=== PATIENT | male | born 1955 | race Two or more races ===

== ENCOUNTER → 2017-01-18 | Outpatient (CLI) | payer MEDICAID, OTHER | END | disposition home or self-care (01) | LOC: Rad HDHVI 15:06 | PROVIDERS: ATTEND Internal Medicine Cardiovascular Disease | DX: I25.10 Atherosclerotic heart disease of native coronary artery without angina pectoris (principal) | CPT/HCPCS: 93306 ==

== ENCOUNTER → 2019-05-22 | Outpatient (CLI) | payer OTHER ==
[2019-05-22 13:58] LABS: Hematocrit 43.1 % (41.0-53.0); Hemoglobin 14.7 g/dL (13.5-17.5); Lymphocytes # (auto) 1.3 uL; Mean Corpuscular Hemoglobin 35.4 pg (28.0-32.0); Mean Corpuscular Hgb Conc. 34.2 g/dL (32.0-36.0); Platelet Count (auto) 204 10^3/uL (140-450); Red Blood Cells 4.17 10^6/uL (4.5-5.90)
[2019-05-22 14:00] LABS: Basophils # (auto) 0.1 uL; Basophils % (auto) 1.1 % (0.0-2.0); Eosinophils # (auto) 0.2 uL; Eosinophils % (auto) 2.5 % (0.0-7.0); Lymphocytes % (auto) 20.3 % (10.0-50.0); Mean Corpuscular Volume 103.3 fL (80.0-100.0); Monocytes # (auto) 0.6 uL; Monocytes % (auto) 9.7 % (0.0-12.0); Neutrophils # (auto) 4.3 uL; Neutrophils % (auto) 66.4 % (37.0-80.0); Red Cell Distribution Width 14.2 % (11.8-14.3); White Blood Cell 6.5 10^3/uL (4.4-10.8)
[2019-05-22 14:33] LABS: Albumin 3.7 g/dL (3.4-5.0); BUN/Creatinine Ratio 8.4; Calcium 8.3 mg/dL (8.5-10.1)
[2019-05-22 14:37] LABS: Bilirubin, Total 0.5 mg/dL (0.2-1.0); Total Protein 7.4 g/dL (6.4-8.2)
== END | disposition home or self-care (01) ==
LOC: LAB 13:39
PROVIDERS: ATTEND Internal Medicine
DX: Z12.11 Encounter for screening for malignant neoplasm of colon (principal); E11.9 Type 2 diabetes mellitus without complications; I25.10 Atherosclerotic heart disease of native coronary artery without angina pectoris; E78.5 Hyperlipidemia, unspecified
CPT/HCPCS: 36415; 80053; 80061; 82043; 82274; 82306; 83036; 84153; 84443; 85025

== ENCOUNTER → 2019-07-10 | Outpatient (CLI) | payer OTHER ==
[~2019-07-10] VITALS: Ht 172.7 cm; Wt 81.6 kg
== END | disposition home or self-care (01) ==
LOC: Rad HDHVI 09:36
PROVIDERS: ATTEND Internal Medicine
DX: I25.10 Atherosclerotic heart disease of native coronary artery without angina pectoris (principal); I42.9 Cardiomyopathy, unspecified; I07.1 Rheumatic tricuspid insufficiency; I11.9 Hypertensive heart disease without heart failure
CPT/HCPCS: 78452; 93017; 93306; 96374; A9500

== ENCOUNTER → 2022-06-17 | Outpatient (CLI) | payer MEDICARE ==
[2022-06-17 11:12] LABS: Basophils # (auto) 0.1 10 ^3/uL (0-0.2); Eosinophils # (auto) 0.7 10 ^3/uL (0-0.8); Hemoglobin 14.6 g/dL (13.5-17.5); Lymphocytes # (auto) 1.2 10 ^3/uL (0.4-5.4); Monocytes # (auto) 0.7 10 ^3/uL (0-1.3); Neutrophils # (auto) 4.9 10 ^3/uL (1.6-8.6); Neutrophils % (auto) 64.6 % (37.0-80.0)
[2022-06-17 11:16] LABS: Basophils % (auto) 1.3 % (0.0-2.0); Eosinophils % (auto) 9.4 % (0.0-7.0); Hematocrit 44.1 % (41.0-53.0); Lymphocytes % (auto) 15.5 % (10.0-50.0); Mean Corpuscular Hemoglobin 35.5 pg (28.0-32.0); Mean Corpuscular Volume 107.5 fL (80.0-100.0); Monocytes % (auto) 9.2 % (0.0-12.0); Red Cell Distribution Width 13.9 % (11.8-14.3); White Blood Cell 7.6 10^3/uL (4.4-10.8)
[2022-06-17 11:37] LABS: Albumin 3.9 g/dL (3.4-5.0); Calcium 9.1 mg/dL (8.5-10.1)
[2022-06-17 11:44] LABS: BUN/Creatinine Ratio 12.5; Bilirubin, Total 1.2 mg/dL (0.2-1.0); Total Protein 7.9 g/dL (6.4-8.2)
[2022-06-17 11:47] LABS: Ferritin 25.8 ng/mL (10-322); Free T4 (Free Thyroxine) 0.95 ng/dL (0.89-1.76); Prostate Specific Antigen 3.49 ng/mL (0.0-4.0)
[2022-06-17 11:48] LABS: Folate (Folic Acid) > 24.00 ng/mL (5.38-24)
[2022-06-17 11:50] LABS: Potassium 5.7 mmol/L (3.5-5.1)
== END | disposition home or self-care (01) ==
LOC: LAB 10:35
PROVIDERS: ATTEND Internal Medicine
DX: Z12.5 Encounter for screening for malignant neoplasm of prostate (principal); Z12.11 Encounter for screening for malignant neoplasm of colon; I10 Essential (primary) hypertension; E78.5 Hyperlipidemia, unspecified; E11.21 Type 2 diabetes mellitus with diabetic nephropathy; E55.9 Vitamin D deficiency, unspecified
CPT/HCPCS: 36415; 80053; 80061; 82043; 82306; 82607; 82728; 82746; 83036; 84153; 84439; 84443; 85025

== ENCOUNTER → 2022-06-27 | Outpatient (CLI) | payer MEDICARE | END | disposition home or self-care (01) | LOC: LAB 14:51 | PROVIDERS: ATTEND Internal Medicine | DX: I25.10 Atherosclerotic heart disease of native coronary artery without angina pectoris (principal); I10 Essential (primary) hypertension; E78.5 Hyperlipidemia, unspecified; Z12.11 Encounter for screening for malignant neoplasm of colon; Z12.5 Encounter for screening for malignant neoplasm of prostate | CPT/HCPCS: 82274 ==

== ENCOUNTER → 2022-07-26 | Outpatient (CLI) | payer OTHER | END | disposition home or self-care (01) | LOC: LAB 11:58 | PROVIDERS: ATTEND Internal Medicine Pulmonary Disease | DX: Z01.812 Encounter for preprocedural laboratory examination (principal); Z20.822 Contact with and (suspected) exposure to COVID-19 | CPT/HCPCS: 36415; 87426 ==

== ENCOUNTER → 2022-07-27 | Outpatient (CLI) | payer MEDICARE, OTHER ==
[~2022-07-27] MED LIST: ALBUTEROL SULF 2.5 MG/0.5ML(0.5%) NEB SOLN ONE
== END | disposition home or self-care (01) ==
LOC: RT 07:36
PROVIDERS: ATTEND Internal Medicine Pulmonary Disease
DX: J44.9 Chronic obstructive pulmonary disease, unspecified (principal); R05.9 Cough, unspecified; R06.00 Dyspnea, unspecified; Z87.891 Personal history of nicotine dependence
CPT/HCPCS: 94060; 94727; 94729

== ENCOUNTER → 2022-08-12 | Outpatient (CLI) | payer OTHER ==
[~2022-08-12] VITALS: Ht 175.3 cm; Wt 79.4 kg
[~2022-08-12] MED LIST changes: +ADENOSINE 67 MG in GIVE UN-DILUTED 0 ML IV ONE; +ADENOSINE 90 MG/30 ML INJ IV ONE; -ALBUTEROL SULF 2.5 MG/0.5ML(0.5%) NEB SOLN ONE
== END | disposition home or self-care (01) ==
LOC: Rad HDHVI 09:06
PROVIDERS: ATTEND Internal Medicine
DX: I25.10 Atherosclerotic heart disease of native coronary artery without angina pectoris (principal); I10 Essential (primary) hypertension; I25.2 Old myocardial infarction; J44.9 Chronic obstructive pulmonary disease, unspecified; E78.00 Pure hypercholesterolemia, unspecified; E11.9 Type 2 diabetes mellitus without complications; Z82.49 Family history of ischemic heart disease and other diseases of the circulatory system
CPT/HCPCS: 78452; 93005; 96374; 96375; A9500; J0153

== ENCOUNTER → 2022-08-15 | Outpatient (CLI) | payer OTHER | END | disposition home or self-care (01) | LOC: Rad HDHVI 08:06 | PROVIDERS: ATTEND Internal Medicine | DX: I08.1 Rheumatic disorders of both mitral and tricuspid valves (principal); R00.2 Palpitations; R07.9 Chest pain, unspecified; R07.89 Other chest pain | CPT/HCPCS: 93306 ==

== ENCOUNTER → 2022-08-17 | Outpatient (CLI) | payer OTHER ==
[2022-08-17 12:29] LABS: Basophils # (auto) 0.1 10 ^3/uL (0-0.2); Eosinophils # (auto) 0.5 10 ^3/uL (0-0.8); Lymphocytes # (auto) 1.5 10 ^3/uL (0.4-5.4); Monocytes # (auto) 0.8 10 ^3/uL (0-1.3)
[2022-08-17 12:31] LABS: Eosinophils % (auto) 7.4 % (0.0-7.0); Hematocrit 41.7 % (41.0-53.0); Hemoglobin 13.5 g/dL (13.5-17.5); Lymphocytes % (auto) 20.8 % (10.0-50.0); Mean Corpuscular Hgb Conc. 32.4 g/dL (32.0-36.0); Monocytes % (auto) 11.1 % (0.0-12.0); Neutrophils # (auto) 4.3 10 ^3/uL (1.6-8.6); Neutrophils % (auto) 59.7 % (37.0-80.0); Red Blood Cells 3.97 10^6/uL (4.5-5.90); Red Cell Distribution Width 13.9 % (11.8-14.3); White Blood Cell 7.2 10^3/uL (4.4-10.8)
[2022-08-17 12:45] LABS: Albumin 3.7 g/dL (3.4-5.0); BUN/Creatinine Ratio 14.6; Calcium 9.8 mg/dL (8.5-10.1); Potassium 4.7 mmol/L (3.5-5.1)
[2022-08-17 12:49] LABS: Bilirubin, Total 0.6 mg/dL (0.2-1.0); Total Protein 7.2 g/dL (6.4-8.2)
[2022-08-17 13:01] LABS: Free T4 (Free Thyroxine) 0.85 ng/dL (0.89-1.76); Prostate Specific Antigen 3.48 ng/mL (0.0-4.0)
[2022-08-17 14:05] LABS: Urine Specific Gravity 1.009 (1.001-1.035)
[2022-08-17 14:06] LABS: Urine Blood Negative /uL (Negative)
== END | disposition home or self-care (01) ==
LOC: LAB 08:13
PROVIDERS: ATTEND Internal Medicine
DX: E11.65 Type 2 diabetes mellitus with hyperglycemia (principal); E55.9 Vitamin D deficiency, unspecified
CPT/HCPCS: 36415; 80053; 80061; 81003; 82306; 82607; 83036; 84153; 84403; 84439; 84443; 85025

== ENCOUNTER → 2022-09-30 | Day surgery (SDC) | payer OTHER ==
[2022-09-28 08:44] LABS: Basophils # (auto) 0.1 10 ^3/uL (0-0.2); Lymphocytes # (auto) 1.6 10 ^3/uL (0.4-5.4); Monocytes # (auto) 0.8 10 ^3/uL (0-1.3); Red Cell Distribution Width 14.9 % (11.8-14.3); White Blood Cell 7.6 10^3/uL (4.4-10.8)
[2022-09-28 08:45] LABS: Basophils % (auto) 0.8 % (0.0-2.0); Eosinophils # (auto) 0.4 10 ^3/uL (0-0.8); Eosinophils % (auto) 4.9 % (0.0-7.0); Hematocrit 43.6 % (41.0-53.0); Hemoglobin 13.9 g/dL (13.5-17.5); Mean Corpuscular Hemoglobin 32.5 pg (28.0-32.0); Mean Corpuscular Hgb Conc. 31.9 g/dL (32.0-36.0); Monocytes % (auto) 10.8 % (0.0-12.0); Neutrophils # (auto) 4.7 10 ^3/uL (1.6-8.6); Neutrophils % (auto) 62.5 % (37.0-80.0); Red Blood Cells 4.27 10^6/uL (4.5-5.90)
[2022-09-28 08:59] LABS: INR 1.12 (0.9-1.15); Partial Thromboplastin Time 29.9 sec (24.6-33.4)
[2022-09-28 09:11] LABS: Albumin 3.9 g/dL (3.4-5.0); BUN/Creatinine Ratio 16.1; Calcium 8.7 mg/dL (8.5-10.1); Potassium 4.9 mmol/L (3.5-5.1)
[2022-09-28 09:14] LABS: Bilirubin, Total 0.6 mg/dL (0.2-1.0); Total Protein 7.5 g/dL (6.4-8.2)
[~2022-09-30] VITALS: Ht 172.7 cm; Wt 80.7 kg
[~2022-09-30] MED LIST changes: -ADENOSINE 67 MG in GIVE UN-DILUTED 0 ML IV ONE; -ADENOSINE 90 MG/30 ML INJ IV ONE; +ASPI1TAB20 PO; +CARV6.25 PO; +FLUT1AER3 IN; +LIDOCAINE VISCOUS 2% 15ML UD ONE; +LISI20TA28 PO; +METF-490 PO
[2022-09-30] MEDS: fentaNYL CITRATE 100 MCG/2 ML VL ONE ×2 (15:27→15:31)
[2022-09-30] MEDS: MIDAZOLAM HCL 2MG/2ML 2ml VIAL (1mg/ml) ONE ×2 (15:27→15:31)
[2022-09-30] MEDS: diphenhdrAMINE HCL 50 MG/1 ML VL ONE ×2 (15:28→15:29)
[2022-09-30 16:25] VITALS: BP 121/74
== END | disposition home or self-care (01) ==
LOC: GI 12:42
PROVIDERS: ATTEND Internal Medicine Gastroenterology
DX: R10.9 Unspecified abdominal pain (principal); K29.90 Gastroduodenitis, unspecified, without bleeding; K44.9 Diaphragmatic hernia without obstruction or gangrene; K25.9 Gastric ulcer, unspecified as acute or chronic, without hemorrhage or perforation; E11.9 Type 2 diabetes mellitus without complications; J44.9 Chronic obstructive pulmonary disease, unspecified; Z79.82 Long term (current) use of aspirin; Z79.84 Long term (current) use of oral hypoglycemic drugs; Z91.030 Bee allergy status; Z87.891 Personal history of nicotine dependence; Z98.890 Other specified postprocedural states; Z20.822 Contact with and (suspected) exposure to COVID-19
CPT/HCPCS: 36415; 43239; 80053; 82962; 85025; 85610; 85730; J1200; J2250; J3010; J7030; U0003

== ENCOUNTER 2022-12-14 14:46 | Emergency (ER) | payer MEDICARE, OTHER ==
[~2022-12-14] VITALS: Ht 172.7 cm; Wt 78.0 kg
[~2022-12-14 14:46] MED LIST changes: -LIDOCAINE VISCOUS 2% 15ML UD ONE
[2022-12-14 16:00] LABS: Basophils # (auto) 0.1 10 ^3/uL (0-0.2); Basophils % (auto) 0.8 % (0.0-2.0); Eosinophils # (auto) 0.3 10 ^3/uL (0-0.8); Eosinophils % (auto) 3.6 % (0.0-7.0); Hematocrit 40.8 % (41.0-53.0); Hemoglobin 13.1 g/dL (13.5-17.5); Lymphocytes # (auto) 1.3 10 ^3/uL (0.4-5.4); Lymphocytes % (auto) 17.8 % (10.0-50.0); Mean Corpuscular Hemoglobin 31.2 pg (28.0-32.0); Mean Corpuscular Volume 97.6 fL (80.0-100.0); Monocytes # (auto) 0.7 10 ^3/uL (0-1.3); Monocytes % (auto) 9.8 % (0.0-12.0); Nucleated Red Blood Cells % 0.1 %; Red Blood Cells 4.19 10^6/uL (4.5-5.90); Red Cell Distribution Width 16.8 % (11.8-14.3); White Blood Cell 7.4 10^3/uL (4.4-10.8)
[2022-12-14 16:19] LABS: Albumin 3.6 g/dL (3.4-5.0); Calcium 9.2 mg/dL (8.5-10.1); Magnesium 2.1 mg/dL (1.6-2.6); Potassium 4.4 mmol/L (3.5-5.1)
[2022-12-14 16:22] LABS: Bilirubin, Total 0.4 mg/dL (0.2-1.0); Total Protein 7.4 g/dL (6.4-8.2)
[2022-12-14 16:28] LABS: INR 1.08 (0.9-1.15); Partial Thromboplastin Time 30.5 sec (24.6-33.4)
[2022-12-14] MEDS ORDERED: SODIUM CHLORIDE 0.9% 1,000 ML IV ONE (17:15)
[2022-12-14 18:34] LABS: Urine Bacteria NONE SEEN /hpf (None Seen); Urine Blood Negative /uL (Negative); Urine Specific Gravity 1.003 (1.001-1.035); Urine WBC <1 /hpf (0 - 3)
[2022-12-14 18:39] VITALS: BP 118/70
== END 2022-12-14 18:50 | disposition home or self-care (01) ==
LOC: ER 14:46
DX: I95.1 Orthostatic hypotension (principal); I11.0 Hypertensive heart disease with heart failure; I50.9 Heart failure, unspecified; Z91.030 Bee allergy status; Z79.899 Other long term (current) drug therapy
CPT/HCPCS: 36415; 71045; 80053; 81001; 82962; 83735; 83880; 84484; 85025; 85610; 85730; 96360; 99285; J7030; 93005

== ENCOUNTER → 2023-09-26 | Outpatient (CLI) | payer OTHER ==
[~2023-09-26] MED LIST changes: -LISI20TA28 PO; +LISI20TA56 PO
[2023-09-26 13:03] LABS: Eosinophils # (auto) 0.2 10 ^3/uL (0-0.8); Monocytes # (auto) 0.7 10 ^3/uL (0-1.3); Neutrophils # (auto) 4.5 10 ^3/uL (1.6-8.6)
[2023-09-26 13:04] LABS: Urine Bacteria NONE SEEN /hpf (None Seen); Urine Blood Negative /uL (Negative); Urine Clarity Clear (Clear); Urine Color Colorless (Yellow); Urine Protein, UAD Negative (Negative); Urine Specific Gravity 1.002 (1.001-1.035); Urine Urobilinogen Normal (Negative); Urine WBC <1 /hpf (0 - 3); Urine pH 5.5 (5.0-8.0)
[2023-09-26 13:05] LABS: Basophils # (auto) 0 10 ^3/uL (0-0.2); Basophils % (auto) 0.8 % (0.0-2.0); Eosinophils % (auto) 2.9 % (0.0-7.0); Hematocrit 43.8 % (41.0-53.0); Lymphocytes % (auto) 15.4 % (10.0-50.0); Mean Corpuscular Hemoglobin 32.2 pg (28.0-32.0); Mean Corpuscular Hgb Conc. 31.9 g/dL (32.0-36.0); Monocytes % (auto) 11.6 % (0.0-12.0); Neutrophils % (auto) 69.3 % (37.0-80.0); Red Blood Cells 4.33 10^6/uL (4.5-5.90); Red Cell Distribution Width 17.4 % (11.8-14.3); White Blood Cell 6.4 10^3/uL (4.4-10.8)
[2023-09-26 14:54] LABS: Prostate Specific Antigen 6.44 ng/mL (0.0-4.0)
[2023-09-26 14:58] LABS: Free T4 (Free Thyroxine) 0.87 ng/dL (0.89-1.76); T3 Total 0.82 ng/mL (0.60-1.81)
[2023-09-27 08:07] LABS: PSA Free 0.81 ng/mL; Prostate Specific Antigen 7.2 ng/mL (0.0-4.0)
== END | disposition home or self-care (01) ==
LOC: LAB 12:24
PROVIDERS: ATTEND Nurse Practitioner Gerontology
DX: E11.69 Type 2 diabetes mellitus with other specified complication (principal)
CPT/HCPCS: 36415; 81001; 83036; 84153; 84154; 84439; 84443; 84480; 85025; 86803; 87086

== ENCOUNTER → 2023-10-09 | Outpatient (CLI) | payer OTHER | END | disposition home or self-care (01) | LOC: LAB 15:36 | PROVIDERS: ATTEND Nurse Practitioner Gerontology | DX: Z00.01 Encounter for general adult medical examination with abnormal findings (principal); Z11.59 Encounter for screening for other viral diseases; J44.9 Chronic obstructive pulmonary disease, unspecified; I25.10 Atherosclerotic heart disease of native coronary artery without angina pectoris; E78.5 Hyperlipidemia, unspecified; E11.69 Type 2 diabetes mellitus with other specified complication | CPT/HCPCS: 82270 ==

== ENCOUNTER 2024-01-10 16:47 | Emergency (ER) | payer OTHER ==
[~2024-01-10] VITALS: Ht 160 cm; Wt 80.0 kg
[~2024-01-10 16:47] MED LIST changes: -CARV6.25 PO; +CARV6.2517 PO
[2024-01-10 17:11] VITALS: PULSE 63; RESP 18; O2SAT 92
[2024-01-10 17:15] VITALS: TEMP 97.7
[2024-01-10] MEDS: SODIUM CHLORIDE 0.9% 500 ML IVB ONE (17:20)
[2024-01-10 18:02] LABS: Basophils # (auto) 0.1 10 ^3/uL (0-0.2); Eosinophils # (auto) 0.3 10 ^3/uL (0-0.8); Neutrophils # (auto) 7.5 10 ^3/uL (1.6-8.6); White Blood Cell 9.9 10^3/uL (4.4-10.8)
[2024-01-10 18:03] LABS: Hematocrit 41.5 % (41.0-53.0); Hemoglobin 13.1 g/dL (13.5-17.5); Lymphocytes # (auto) 0.8 10 ^3/uL (0.4-5.4); Mean Corpuscular Hemoglobin 32.2 pg (28.0-32.0); Mean Corpuscular Hgb Conc. 31.6 g/dL (32.0-36.0); Monocytes # (auto) 1.2 10 ^3/uL (0-1.3); Monocytes % (auto) 11.8 % (0.0-12.0); Neutrophils % (auto) 76.2 % (37.0-80.0); Nucleated Red Blood Cells % 0.1 %; Red Blood Cells 4.07 10^6/uL (4.5-5.90); Red Cell Distribution Width 16.5 % (11.8-14.3)
[2024-01-10 18:07] LABS: Chloride 103 mmol/L (98-107); Potassium 4.9 mmol/L (3.5-5.1); Sodium 134 mmol/L (136-145)
[2024-01-10 18:08] LABS: Anion Gap 6 (5-15); Calcium 9.1 mg/dL (8.5-10.1); Carbon Dioxide 25 mmol/L (20-30)
[2024-01-10 18:13] LABS: Glucose 135 mg/dL (74-106)
[2024-01-10 18:36] LABS: BUN/Creatinine Ratio 5.3 (10.0-20.0); Blood Urea Nitrogen < 5 mg/dL (9-23)
[2024-01-10 19:00] VITALS: BP 153/103; PULSE 89; RESP 14; O2SAT 92
== END 2024-01-10 19:31 | disposition home or self-care (01) ==
LOC: EDBD 16:47 → ER 16:47
DX: R55 Syncope and collapse (principal); I11.0 Hypertensive heart disease with heart failure; I50.9 Heart failure, unspecified; I25.2 Old myocardial infarction; J44.9 Chronic obstructive pulmonary disease, unspecified; E11.9 Type 2 diabetes mellitus without complications; E78.5 Hyperlipidemia, unspecified; E03.9 Hypothyroidism, unspecified; Z87.891 Personal history of nicotine dependence; Z79.82 Long term (current) use of aspirin; Z79.899 Other long term (current) drug therapy; Z91.030 Bee allergy status
CPT/HCPCS: 36415; 70450; 71045; 80048; 84484; 85025; 93005; 96360; 99285; J7040

== ENCOUNTER → 2024-02-26 | Outpatient (CLI) | payer OTHER ==
[2024-02-26 15:33] LABS: Basophils # (auto) 0.1 10 ^3/uL (0-0.2); Basophils % (auto) 1.3 % (0.0-2.0); Eosinophils # (auto) 0.3 10 ^3/uL (0-0.8); Eosinophils % (auto) 4.4 % (0.0-7.0); Lymphocytes # (auto) 1.1 10 ^3/uL (0.4-5.4); Lymphocytes % (auto) 14.4 % (10.0-50.0); Mean Corpuscular Hemoglobin 32.1 pg (28.0-32.0); Mean Corpuscular Hgb Conc. 32.5 g/dL (32.0-36.0); Mean Corpuscular Volume 98.8 fL (80.0-100.0); Monocytes # (auto) 1.2 10 ^3/uL (0-1.3); Monocytes % (auto) 15.6 % (0.0-12.0); Neutrophils # (auto) 4.8 10 ^3/uL (1.6-8.6); Neutrophils % (auto) 64.3 % (37.0-80.0); Nucleated Red Blood Cells % 0.1 %; Red Blood Cells 3.75 10^6/uL (4.5-5.90); Red Cell Distribution Width 17.7 % (11.8-14.3); White Blood Cell 7.5 10^3/uL (4.4-10.8)
[2024-02-26 16:42] LABS: Alanine Aminotransferase 29 U/L (7-40); Alkaline Phosphatase 162 U/L (46-116); Anion Gap 6 (5-15); Aspartate Aminotransferase 52 U/L (13-40); Bilirubin, Total 1.2 mg/dL (0.2-1.0); Carbon Dioxide 24 mmol/L (20-30); Chloride 101 mmol/L (98-107); Cholesterol 113 mg/dL (< 200); Glucose 139 mg/dL (74-106); HDL Cholesterol 40 mg/dL (40-59); LDL Cholesterol 68 mg/dL (< 100); Potassium 4.7 mmol/L (3.5-5.1); Sodium 131 mmol/L (136-145); Triglycerides 76 mg/dL (< 150)
[2024-02-26 16:43] LABS: Blood Urea Nitrogen < 5 mg/dL (9-23); Total Protein 6.8 g/dL (5.7-8.2)
== END | disposition home or self-care (01) ==
LOC: LAB 14:55
PROVIDERS: ATTEND Internal Medicine
DX: E11.40 Type 2 diabetes mellitus with diabetic neuropathy, unspecified (principal); E03.8 Other specified hypothyroidism; N18.2 Chronic kidney disease, stage 2 (mild); E11.21 Type 2 diabetes mellitus with diabetic nephropathy; E11.9 Type 2 diabetes mellitus without complications; I50.22 Chronic systolic (congestive) heart failure
CPT/HCPCS: 36415; 80053; 80061; 83036; 85025

== ENCOUNTER 2024-03-16 17:39 | Emergency (ER) | payer OTHER ==
[~2024-03-16] VITALS: Ht 175.3 cm; Wt 78.6 kg
[2024-03-16] MEDS: SODIUM CHLORIDE 0.9% 1,000 ML IV ONE ×2 (18:43→19:55)
[2024-03-16 18:54] LABS: Basophils # (auto) 0.1 10 ^3/uL (0-0.2); Basophils % (auto) 0.9 % (0.0-2.0); Eosinophils # (auto) 0.3 10 ^3/uL (0-0.8); Eosinophils % (auto) 3.5 % (0.0-7.0); Hematocrit 36.5 % (41.0-53.0); Hemoglobin 11.9 g/dL (13.5-17.5); Lymphocytes # (auto) 1.1 10 ^3/uL (0.4-5.4); Lymphocytes % (auto) 12.5 % (10.0-50.0); Mean Corpuscular Hemoglobin 32.2 pg (28.0-32.0); Mean Corpuscular Hgb Conc. 32.6 g/dL (32.0-36.0); Mean Corpuscular Volume 98.7 fL (80.0-100.0); Monocytes # (auto) 1.1 10 ^3/uL (0-1.3); Monocytes % (auto) 13.3 % (0.0-12.0); Neutrophils # (auto) 6.1 10 ^3/uL (1.6-8.6); Neutrophils % (auto) 69.8 % (37.0-80.0); White Blood Cell 8.7 10^3/uL (4.4-10.8)
[2024-03-16 19:15] LABS: Chloride 97 mmol/L (98-107); Potassium 4.1 mmol/L (3.5-5.1); Sodium 128 mmol/L (136-145)
[2024-03-16 19:16] LABS: Anion Gap 7 (5-15); Calcium 8.6 mg/dL (8.7-10.4); Carbon Dioxide 24 mmol/L (20-30)
[2024-03-16 19:21] LABS: BUN/Creatinine Ratio 5.1 (10.0-20.0); Blood Urea Nitrogen 5 mg/dL (9-23); Glucose 127 mg/dL (74-106)
[2024-03-16 20:00] VITALS: BP 108/62; PULSE 56; RESP 13; O2SAT 94
[2024-03-16] MEDS ORDERED: SODIUM CHLORIDE 0.9% 1,000 ML IV ONE (20:00)
[2024-03-16] MEDS ORDERED: LACTATED RINGER'S 1,000 ML IV ONE (20:00)
== END 2024-03-16 20:57 | disposition left against medical advice (07) ==
LOC: EDUNIT# 17:39 → EDBD 17:39 → ER 17:42
DX: I95.9 Hypotension, unspecified (principal); D89.89 Other specified disorders involving the immune mechanism, not elsewhere classified; J44.9 Chronic obstructive pulmonary disease, unspecified; E11.9 Type 2 diabetes mellitus without complications; I11.0 Hypertensive heart disease with heart failure; I50.89 Other heart failure; E03.9 Hypothyroidism, unspecified; Z90.89 Acquired absence of other organs; Z87.891 Personal history of nicotine dependence; Z91.030 Bee allergy status; Z79.84 Long term (current) use of oral hypoglycemic drugs; Z79.82 Long term (current) use of aspirin
CPT/HCPCS: 36415; 80048; 84484; 85025; 93005; 96360; 96361; 99284; J7030

== ENCOUNTER 2024-03-18 14:45 | Inpatient (IN) | payer OTHER ==
[~2024-03-18] VITALS: Ht 172.7 cm; Wt 80.0 kg
[~2024-03-18 14:45] MED LIST changes: -FLUT1AER3 IN; +FLUT1AER3 INH
[2024-03-18 15:55] VITALS: PULSE 56; O2SAT 90
[2024-03-18 16:01] LABS: Basophils # (auto) 0.1 10 ^3/uL (0-0.2); Basophils % (auto) 0.8 % (0.0-2.0); Eosinophils # (auto) 0.3 10 ^3/uL (0-0.8); Eosinophils % (auto) 4.4 % (0.0-7.0); Hematocrit 38.4 % (41.0-53.0); Hemoglobin 12.3 g/dL (13.5-17.5); Lymphocytes % (auto) 15.4 % (10.0-50.0); Mean Corpuscular Hemoglobin 32.1 pg (28.0-32.0); Mean Corpuscular Hgb Conc. 32.2 g/dL (32.0-36.0); Mean Corpuscular Volume 99.8 fL (80.0-100.0); Monocytes # (auto) 0.7 10 ^3/uL (0-1.3); Monocytes % (auto) 11.1 % (0.0-12.0); Neutrophils # (auto) 4.4 10 ^3/uL (1.6-8.6); Neutrophils % (auto) 68.3 % (37.0-80.0); Nucleated Red Blood Cells % 0.1 %; Red Blood Cells 3.85 10^6/uL (4.5-5.90); Red Cell Distribution Width 18.9 % (11.8-14.3); White Blood Cell 6.4 10^3/uL (4.4-10.8)
[2024-03-18 16:23] LABS: Alanine Aminotransferase 25 U/L (7-40); Albumin 4.2 g/dL (3.2-4.8); Alkaline Phosphatase 118 U/L (46-116); Anion Gap 6 (5-15); Aspartate Aminotransferase 48 U/L (13-40); Blood Alcohol 3.4 mg/dL (<10); Blood Urea Nitrogen 6 mg/dL (9-23); Calcium 9.2 mg/dL (8.7-10.4); Carbon Dioxide 24 mmol/L (20-30); Chloride 102 mmol/L (98-107); Glucose 129 mg/dL (74-106); Potassium 4.5 mmol/L (3.5-5.1); Sodium 132 mmol/L (136-145); Total Protein 6.8 g/dL (5.7-8.2)
[2024-03-18] MEDS: SODIUM CHLORIDE 0.9% 1,000 ML IV ONE (17:08)
[2024-03-18] MEDS: IOHEXOL 350 MG/ML 100ML IJ ONE (18:41)
[2024-03-18 19:01] LABS: Urine Bacteria FEW /hpf (None Seen); Urine Blood Negative /uL (Negative); Urine Clarity Clear (Clear); Urine Color Light-Yellow (Yellow); Urine Protein, UAD Negative (Negative); Urine Specific Gravity 1.003 (1.001-1.035); Urine Urobilinogen Normal (Negative); Urine WBC <1 /hpf (0 - 3)
[2024-03-18 19:53] LABS: Amphetamine Screen, Urine Neg (NEGATIVE); Barbiturate Scree,Urine Neg (NEGATIVE); Benzodiazephine Screen, Urine Neg (NEGATIVE); Cannabinoid Screen, Urine Neg (NEGATIVE); Cocaine Screen, Urine Neg (NEGATIVE); Opiate Scree,Urine Neg (NEGATIVE); Phencyclidine Screen, Urine Neg (NEGATIVE)
[2024-03-18] MEDS ORDERED: MORPHINE SULFATE INJ 2 MG/ml SYRG IV PRN ×2 (20:15→21:30)
[2024-03-18] MEDS ORDERED: IBUPROFEN 600 MG TAB PO PRN (20:15)
[2024-03-18] MEDS ORDERED: ONDANSETRON HCL 4 MG/2 ML VIAL IV PRN (20:15)
[2024-03-18] MEDS ORDERED: ALBUTEROL SULF 2.5 MG/0.5ML(0.5%) NEB SOLN NEB PRN (20:15)
[2024-03-18] MEDS ORDERED: DEXTROSE (50%) 50ML SYRG IV PRN (20:15)
[2024-03-18] MEDS ORDERED: DOCUSATE SOD 100 MG CAP PO PRN (20:15)
[2024-03-18] MEDS: cefTRIAXone 1GM/50ML D5W 50 ML IV ONE (20:28)
[2024-03-18] MEDS: ENOXAPARIN SOD 80 MG/0.8ML SYRINGE SC ONE (20:32)
[2024-03-18] MEDS: AZITHROMYCIN 500MG/ 250ML 250 ML IV ONE (20:32)
[2024-03-18 20:40] VITALS: O2SAT 90
[2024-03-18 20:42] VITALS: BP 111/59; PULSE 56; RESP 12; TEMP 98.3; O2SAT 90
[2024-03-18] MEDS ORDERED: NITROGLYCERIN 0.4 MG SL TAB SL PRN (21:30)
[2024-03-18] MEDS: InsuLIN REG 1unit/0.01ml Soln (100units/ml) SC SCH (22:00)
[2024-03-18] MEDS: SODIUM CHLOR 0.9% PF (SALINE LOCK) 10ML VIAL/SYR IV SCH (22:00)
[2024-03-18] MEDS: CARVEDILOL 3.125 MG TAB PO SCH (22:00)
[2024-03-18] MEDS: ACCU-CHEK COMFORT CURVE STRIP VI SCH (22:00)
[2024-03-19] VITALS (13 sets, daily range): BP systolic 106–151; BP diastolic 59–82; PULSE 52–85; RESP 16–18; TEMP 97.6–98.3; O2SAT 92–100
[2024-03-19 08:59] LABS: Basophils # (auto) 0.1 10 ^3/uL (0-0.2); Basophils % (auto) 0.9 % (0.0-2.0); Eosinophils # (auto) 0.3 10 ^3/uL (0-0.8); Eosinophils % (auto) 4.6 % (0.0-7.0); Hematocrit 38.1 % (41.0-53.0); Hemoglobin 12.5 g/dL (13.5-17.5); Lymphocytes # (auto) 1.1 10 ^3/uL (0.4-5.4); Lymphocytes % (auto) 19.5 % (10.0-50.0); Mean Corpuscular Hemoglobin 32.9 pg (28.0-32.0); Mean Corpuscular Hgb Conc. 32.9 g/dL (32.0-36.0); Monocytes # (auto) 0.5 10 ^3/uL (0-1.3); Monocytes % (auto) 8.6 % (0.0-12.0); Neutrophils # (auto) 3.8 10 ^3/uL (1.6-8.6); Neutrophils % (auto) 66.4 % (37.0-80.0); Red Blood Cells 3.81 10^6/uL (4.5-5.90); Red Cell Distribution Width 19.5 % (11.8-14.3); White Blood Cell 5.7 10^3/uL (4.4-10.8)
[2024-03-19] MEDS ORDERED: IPRATROPIUM BROM 0.5 MG/2.5ML INH SOL NEB PRN (09:00)
[2024-03-19 09:17] LABS: Alanine Aminotransferase 23 U/L (7-40); Alkaline Phosphatase 114 U/L (46-116); Anion Gap 6 (5-15); Aspartate Aminotransferase 41 U/L (13-40); Carbon Dioxide 24 mmol/L (20-30); Chloride 104 mmol/L (98-107); Cholesterol 88 mg/dL (< 200); Glucose 117 mg/dL (74-106); HDL Cholesterol 34 mg/dL (40-59); LDL Cholesterol 48 mg/dL (< 100); Potassium 4.4 mmol/L (3.5-5.1); Sodium 134 mmol/L (136-145); Triglycerides 68 mg/dL (< 150)
[2024-03-19 09:18] LABS: Bilirubin, Total 0.9 mg/dL (0.2-1.0); Total Protein 6.7 g/dL (5.7-8.2)
[2024-03-19 09:19] LABS: BUN/Creatinine Ratio 6.7 (10.0-20.0); Blood Urea Nitrogen < 5 mg/dL (9-23)
[2024-03-19] MEDS: PANTOPRAZOLE 40 MG TAB PO ONE (09:59)
[2024-03-19] MEDS: ASPirin 81 mg TAB PO SCH (09:59)
[2024-03-19] MEDS: ENOXAPARIN SOD 80 MG/0.8ML SYRINGE SC SCH (10:00)
[2024-03-19] MEDS: methylPREDNISolone SOD SUCC 40 MG/ML VL IV SCH (10:02)
[2024-03-19] MEDS: AZITHROMYCIN 500MG/ 250ML 250 ML IV SCH (10:23)
[2024-03-19] MEDS: CYANOCOBALAMIN (B-12) 1000 MCG/1 ML VIAL IM ONE (12:32)
[2024-03-19] MEDS: FUROSEMIDE 20 MG/2 ML VIAL IV ONE (16:52)
[2024-03-19] MEDS ORDERED: FUROSEMIDE 20 MG/2 ML VIAL IV SCH (18:00)
[2024-03-19 19:20] LABS: COVID19 ANTIGEN SOFIA FIA NEGATIVE (NEGATIVE)
[2024-03-19 19:21] LABS: Rapid Influenza A Negative (Negative); Rapid Influenza B Negative (Negative)
[2024-03-19] MEDS: SPIRONOLACTONE 25 MG TAB PO ONE (20:19)
[2024-03-19] MEDS: VALSARTAN 80 MG TAB PO ONE (20:19)
[2024-03-19] MEDS: ATORVASTATIN 20 MG TAB PO SCH (21:15)
[2024-03-20] VITALS (14 sets, daily range): BP systolic 103–120; BP diastolic 49–79; PULSE 43–85; RESP 16–18; TEMP 36.4; O2SAT 87–95
[2024-03-20] MEDS: PANTOPRAZOLE 40 MG TAB PO SCH (05:58)
[2024-03-20 06:15] LABS: Alanine Aminotransferase 21 U/L (7-40); Alkaline Phosphatase 103 U/L (46-116); Anion Gap 8 (5-15); Aspartate Aminotransferase 30 U/L (13-40); BUN/Creatinine Ratio 9.7 (10.0-20.0); Bilirubin, Total 0.9 mg/dL (0.2-1.0); Blood Urea Nitrogen 7 mg/dL (9-23); Calcium 9.3 mg/dL (8.7-10.4); Carbon Dioxide 24 mmol/L (20-30); Chloride 102 mmol/L (98-107); Glucose 144 mg/dL (74-106); Potassium 4.4 mmol/L (3.5-5.1); Sodium 134 mmol/L (136-145); Total Protein 6.7 g/dL (5.7-8.2)
[2024-03-20] MEDS: SPIRONOLACTONE 25 MG TAB PO SCH (08:45)
[2024-03-20] MEDS: VALSARTAN 80 MG TAB PO SCH (08:45)
[2024-03-20] MEDS ORDERED: VALS1TAB57 PO (11:58)
[2024-03-20] MEDS ORDERED: APIX5TAB PO (11:58)
[2024-03-20] MEDS ORDERED: ATOR20TA50 PO (11:58)
[2024-03-20] MEDS ORDERED: PANT40T PO (11:58)
[2024-03-20] MEDS ORDERED: SPIR25TA PO (11:58)
[2024-03-20] MEDS ORDERED: EMPA1TAB PO (11:58)
[2024-03-20] MEDS ORDERED: LEVO25TA6 PO (13:15)
[2024-03-20] MEDS ORDERED: SERT-206 PO (13:15)
[2024-03-20] MEDS ORDERED: FURO20TA3 PO ×2 (13:15→16:01)
[2024-03-20] MEDS: FUROSEMIDE 20 MG/2 ML VIAL IV ONE (15:00)
[2024-03-20 15:44] LABS: Base Excess -1.1 mmol/L (-2.0-2.0)
[2024-03-20 17:00] LABS: Base Excess -3.7 mmol/L (-2.0-2.0)
[2024-03-21] VITALS (9 sets, daily range): BP systolic 121–136; BP diastolic 62–83; PULSE 55–82; RESP 16–20; TEMP 36.9; O2SAT 93–97
[2024-03-21 06:34] LABS: Chloride 104 mmol/L (98-107); Potassium 4.3 mmol/L (3.5-5.1); Sodium 136 mmol/L (136-145)
[2024-03-21 06:35] LABS: Anion Gap 6 (5-15); Calcium 9.4 mg/dL (8.7-10.4); Carbon Dioxide 26 mmol/L (20-30)
[2024-03-21 06:40] LABS: BUN/Creatinine Ratio 12.7 (10.0-20.0); Blood Urea Nitrogen 9 mg/dL (9-23); Glucose 130 mg/dL (74-106)
[2024-03-21] MEDS: FUROSEMIDE 20 MG TAB PO SCH (08:06)
[2024-03-21] MEDS ORDERED: AZIT-43 PO (13:50)
[2024-03-21] MEDS ORDERED: METO25TA5 PO (20:23)
[2024-03-22] MEDS ORDERED: EMPAGLIFLOZIN 10 MG TAB PO SCH (10:00)
== END 2024-03-21 15:48 | disposition home or self-care (01) | DRG 175 ==
LOC: ER 14:47 → TELE 21:22 → TELE-E-ADS 03-19 03:20
PROVIDERS: ADMIT Internal Medicine; ATTEND Emergency Medicine
DX: I26.94 Multiple subsegmental thrombotic pulmonary emboli without acute cor pulmonale (principal); I50.23 Acute on chronic systolic (congestive) heart failure; J18.9 Pneumonia, unspecified organism; J96.21 Acute and chronic respiratory failure with hypoxia; J44.0 Chronic obstructive pulmonary disease with (acute) lower respiratory infection; I11.0 Hypertensive heart disease with heart failure; E78.5 Hyperlipidemia, unspecified; E11.9 Type 2 diabetes mellitus without complications; I25.10 Atherosclerotic heart disease of native coronary artery without angina pectoris; E03.9 Hypothyroidism, unspecified; Z20.822 Contact with and (suspected) exposure to COVID-19; I95.9 Hypotension, unspecified; F10.20 Alcohol dependence, uncomplicated; Y90.9 Presence of alcohol in blood, level not specified; Z86.74 Personal history of sudden cardiac arrest; Z91.030 Bee allergy status; Z79.82 Long term (current) use of aspirin; Z79.899 Other long term (current) drug therapy; Z95.5 Presence of coronary angioplasty implant and graft; Z87.891 Personal history of nicotine dependence; Z83.3 Family history of diabetes mellitus; Z82.49 Family history of ischemic heart disease and other diseases of the circulatory system; Z80.41 Family history of malignant neoplasm of ovary; I25.2 Old myocardial infarction
CPT/HCPCS: 36415; 36600; 70450; 71045; 71275; 76705; 80048; 80053; 80061; 80307; 80320; 81001; 82306; 82607; 82805; 82962; 83605; 83735; 83880; 83930; 84154; 84300; 84443; 84484; 85025; 85379; 87426; 87804; 93005; 93306; 93886; 93970; 96360; 96361; 96365; 96366; 96368; 96372; 99291; G0378; J1815

== ENCOUNTER → 2024-05-27 | Outpatient (CLI) | payer OTHER ==
[~2024-05-27] VITALS: Ht 175.3 cm; Wt 79.8 kg
[~2024-05-27] MED LIST changes: +APIX5TAB PO; +ATOR20TA50 PO; +AZIT-43 PO; -CARV6.2517 PO; +EMPA1TAB PO; +FURO20TA3 PO; +LEVO25TA6 PO; -LISI20TA56 PO; +METO25TA5 PO; +PANT40T PO; +SERT-206 PO; +SPIR25TA PO; +VALS1TAB57 PO
[2024-05-27] MEDS: ADENOSINE 67 MG in GIVE UN-DILUTED 0 ML IV STA (09:53)
== END | disposition home or self-care (01) ==
LOC: XYW 08:03
PROVIDERS: ATTEND Student in an Organized Health Care Education/Training Program
DX: R94.31 Abnormal electrocardiogram [ECG] [EKG] (principal); R93.1 Abnormal findings on diagnostic imaging of heart and coronary circulation; E03.9 Hypothyroidism, unspecified; E11.9 Type 2 diabetes mellitus without complications; E78.00 Pure hypercholesterolemia, unspecified; I10 Essential (primary) hypertension; I25.10 Atherosclerotic heart disease of native coronary artery without angina pectoris; I49.3 Ventricular premature depolarization; J44.9 Chronic obstructive pulmonary disease, unspecified; Z91.030 Bee allergy status; Z95.5 Presence of coronary angioplasty implant and graft
CPT/HCPCS: 78452; 93017; A9500; J0153

== ENCOUNTER 2024-08-01 03:50 | Inpatient (IN) | payer OTHER ==
[~2024-08-01] VITALS: Ht 172.7 cm; Wt 79.5 kg
[2024-08-01] VITALS (8 sets, daily range): BP systolic 101; BP diastolic 60; PULSE 75–94; RESP 14–23; TEMP 99.1; O2SAT 67–98
[2024-08-01] MEDS ORDERED: DOCUSATE SOD 100 MG CAP PO PRN (04:45)
[2024-08-01] MEDS ORDERED: MORPHINE SULFATE INJ 2 MG/ml SYRG IV PRN ×2 (04:45)
[2024-08-01] MEDS ORDERED: ONDANSETRON HCL 4 MG/2 ML VIAL IV PRN (04:45)
[2024-08-01] MEDS ORDERED: NITROGLYCERIN 0.4 MG SL TAB SL PRN (04:45)
[2024-08-01] MEDS: FUROSEMIDE 40 MG/4 ML VIAL IV ONE (05:15)
--- NOTE | 2024-08-01 05:20 | DVHHPRES ---
History of Present Illness Resident Creating Document: DELIO MAC RESIDENT History of Present Illness Patient is 72 years old male with past medical history of HFrEF, LVEF 30%, COPD ON NC O2 3 liters/minute, CAD, status post PTCA x1 LIZETT, chronic LD, diabetes mellitus type 2, hypothyroidism, history of alcohol dependence, history of tobacco use, hyperlipidemia is a transfer from [facility]. As per patient he was admitted at [facility] following a fall 2 nights before. Patient was transferred from [facility] to [facility] due to elevated troponin I. Patient reported he has been having cough for last 1 week, but he started making greenish dark sputum today. Patient also endorsed exertional dyspnea going on for a while but no respiratory distress at home. Patient reported that 2 years before she rolled over and fell from his bed on the floor, denied hitting head or fracture. Patient reported that after she felt she could not get up and roommate called 911. Patient denied any chest pain, fever, constipation or diarrhea, dysuria, leg swelling, dysarthria. Initial lab workup revealed a troponin I >1900, EKG atrial fibrillation with a controlled ventricular rate. Initial lab workup revealed mild anemia with a hemoglobin 11.9, elevated RDW 18.7, sodium 134, elevated AST 148, elevated a lkaline phosphatase 119. Patient was hospitalized at [facility] in March 16, 2024 for acute on chronic hypoxic respiratory failure/acute on chronic heart failure Echo 2D on 03/19/2024 revealed-Moderately dilated left ventricle. Severely redu magda left ventricular systolic function estimated ejection fraction 30%. There is global wall hypokinesia. Of note, there is multiple PVCs during the study. Normal right ventricular size and dimension. Normal left ventricular systolic function. Mildly elevated right ventricular systolic pressure at 35 mm of mercury. Past Medical History Patient lives at home, quit smoking cigarettes greater than 1 year, drinks alcohol occasionally, denies illicit drugs abuse. Past Surgical History Hernia Repair, Family History Noncontributory Past Social History Patient lives at home, quit smoking cigarettes greater than 1 year, drinks alcohol occasionally, denies illicit drugs abuse. Review of Systems Review of Systems Allergy- bee venom Patient was seen today at the bedside. Cardiovascular- deny acute chest pain or palpitation Gastrointestinal- denies any rectal bleeding, nausea or vomiting Musculoskeletal-denies acute joint swelling or tenderness or redness Neurological- denies acute dysarthria, dysphagia, change in vision Psychiatry- denies depression or SI or HI Skin- denies acute rash or purpura Allergies: Coded Allergies: Bee Venom (Verified Allergy, Unknown, 07/10/19) Medications Current Medications Medications Dose Ordered Sig/Frieda Route Start Time Stop Time Status Last Admin Dose Admin Sodium Chloride 10 ml Q8HR IV 08/01/24 06:00 Ondansetron HCl 4 mg Q4HP PRN IV 08/01/24 04:45 Docusate Sodium 100 mg BIDPRN PRN PO 08/01/24 04:45 Acetaminophen 650 mg Q6HP PRN PO 08/01/24 04:45 Morphine Sulfate 2 mg Q4HPRN PRN IV 08/01/24 04:45 Nitroglycerin 0.4 mg Q5MINP PRN SL 08/01/24 04:45 Morphine Sulfate 2 mg Q30M PRN IV 08/01/24 04:45 Heparin Sodium/ Dextrose 250 ml @ 9.54 mls/hr Q24H IV 08/01/24 05:15 UNV Aspirin 81 mg DAILY PO 08/01/24 10:00 UNV Atorvastatin Calcium 40 mg HS PO 08/01/24 22:00 UNV Levothyroxine Sodium 25 mcg DAILY PO 08/01/24 10:00 UNV Spironolactone 25 mg DAILY PO 08/01/24 10:00 UNV Furosemide 20 mg BIDD IV 08/01/24 06:00 UNV Exam Vital Signs Vital Signs Date Time Temp Pulse Resp B/P (MAP) Pulse Ox O2 Delivery O2 Flow Rate FiO2 08/01/24 03:55 99.1 99 16 120/68 (85) 97 Exam General examination- awake, alert, oriented, conversant HEENT- PEERLA, no acute nasal discharge Cardiovascular- S1-S2 audible, rate and rhythm regular, no murmur Respiratory- bilateral crackles ++, wheezing++ Gastrointestinal-nontender, bowel sound+. Nondistended Musculoskeletal-no acute joint swelling or tenderness or redness# Lower extremity- , no leg edema Neurological- cranial nerves intact, no acute dysarthria or dysphagia Psychiatry- denies depression or SI or HI Skin-fragile skin Labs/Xrays Labs Test 08/01/24 04:20 Range/Units Troponin I High Sensitivity 1905 *H </=54 ng/L Assessment/Plan Assessment/Plan # acute on chronic hypoxic respiratory failure likely due to acute on chronic HFrEH/acute exacerbation of COPD #acute on chronic HFrEF, NYHA CLASS 3 #NSTEMI TYPE 1 #acute exacerbation of COPD # suspected pneumonia Gram-positive versus Gram-negative # pulmonary edema likely due to acute on chronic HFrEH #Atrial fibrillation # CAD, status post PTCA x1 LIZETT # hyperlipidemia # hypothyroidism # chronic LD # diabetes mellitus type 2 # transaminitis # history of cardiac arrest Continue heparin as per protocol -continue aspirin 81 mg p.o. daily -continue atorvastatin 40 mg q.h.s. Nitroglycerin p.r.n. as prescribed -Lasix 20 mg IV b.i.d. -continue ceftriaxone 1 g IV daily -continue azithromycin 500 mg IV daily -insulin sliding scale as prescribed Ordered cardiology consult -pending lab reports Nursing staff was informed of transfer the patient to [facility] Goals of care/advance care planning; FULL CODE; discussed with the patient >15 minutes PUD prophylaxis: Famotidine DVT prophylaxis: Heparin Plan discussed with Dr. Bhat, nursing staff, patient Total time spent on patient evaluation, chart review, assessment and plan, dis cussion discussion >30 minutes Plan discussed with: Patient Plan discussed with: Patient, Other (RN) My Orders Orders - DELIO MAC RESIDENT Procedure Category Date Status Time Admit ADMIT 08/01/24 Transmitted 04:38 Code Status CODE 08/01/24 Transmitted 04:38 Sodium Chloride Lock PHA 08/01/24 In Process (Saline Lock Ns) 06:00 Ondansetron Hcl PHA 08/01/24 In Process (Zofran) 04:45 Docusate Sodium PHA 08/01/24 In Process Capsule (Colace 04:45 Complete Blood Count LAB 08/02/24 Verified 04:00 Comprehensive LAB 08/02/24 Verified Metabolic Panel 04:00 Cardiac DIET 08/01/24 Transmitted Diet-2gna,Lofat,Lochol Breakfast Echo 2d Mode Cardiac US 08/01/24 Logged DOP 04:38 Acetaminophen Tablet PHA 08/01/24 In Process (Tylenol Tablet) 04:45 Morphine Sulfate PHA 08/01/24 In Process Injection 04:45 Nitroglycerin PHA 08/01/24 In Process Sublingual (Ntrostat 04:45 Morphine Sulfate PHA 08/01/24 In Process Injection 04:45 Oxygen By Nasal RT 08/01/24 Transmitted Cannula 04:38 Stat Ekg For Chest CB 08/01/24 In Process Pain 04:38 Notify Of Changes [facility] 08/01/24 In Process From Base 04:38 Primer Boxer For [facility] 08/01/24 In Process 24 Hours 04:38 Emergency Dysrhythmia [facility] 08/01/24 In Process Protocol 04:38 Rhythm Strips Once [facility] 08/01/24 In Process Every Shift 04:38 Complete Blood Count LAB 08/01/24 Logged 05:08 Comprehensive LAB 08/01/24 Logged Metabolic Panel 05:08 B-Type Natriuretic LAB 08/01/24 Logged Peptide 05:08 Thyroid Stimulating LAB 08/01/24 Logged Hormone 05:08 Magnesium LAB 08/01/24 Logged 05:08 Chest Xray 1 View XY 08/01/24 Logged 05:08 Furosemide Injection PHA 08/01/24 Logged (Lasix Injection) 05:15 Platelet Monitoring [facility] 08/01/24 In Process 05:10 Heparin Per [facility] 08/01/24 In Process Standardized Proce 05:10 Discontinue All Im [facility] 08/01/24 In Process Injections 05:10 PTPTT LAB 08/01/24 Logged 05:10 Complete Blood Count LAB 08/01/24 Logged 05:10 Heparin Sodium PHA 08/01/24 Logged (Porcine) 05:15 Heparin Drip/D5w PHA 08/01/24 Logged 100units/Ml 05:15 Stat Ekg For Chest [facility] 08/01/24 In Process Pain 05:10 Prothrombin Time W/ LAB 08/01/24 Logged INR 05:12 * Cardiothoracic CONS 08/01/24 Transmitted Consult Aspirin Enteric PHA 08/01/24 Logged Coated Tablet 10:00 Atorvastatin (Lipitor) PHA 08/01/24 Logged 22:00 Levothyroxine Tablet PHA 08/01/24 Logged (Synthroid Tablet) 10:00 Spironolactone PHA 08/01/24 Logged (Aldactone) 10:00 Furosemide Injection PHA 08/01/24 Logged (Lasix Injection) 06:00 Transfer Orders XFER 08/01/24 Transmitted 05:15 Date of Service: Aug 01, 2024 Billing Provider: DEDRICK BHAT MD Common Visit Codes: 39237-[id number] INP/OBS CARE (HIGH) Secondary Visit Codes: [id number] CARE PLAN 30 MINUTES DELIO MAC Aug 01, 2024 05:20 DEDRICK BHAT MD Aug 01, 2024 15:02
[2024-08-01] MEDS ORDERED: DEXTROSE (50%) 50ML SYRG IV PRN (05:30)
[2024-08-01 05:32] LABS: Basophils # (auto) 0.1 10 ^3/uL (0-0.2); Basophils % (auto) 1.4 % (0.0-2.0); Eosinophils # (auto) 0.1 10 ^3/uL (0-0.8); Eosinophils % (auto) 1.1 % (0.0-7.0); Hematocrit 37.9 % (41.0-53.0); Hemoglobin 11.9 g/dL (13.5-17.5); Lymphocytes # (auto) 0.7 10 ^3/uL (0.4-5.4); Lymphocytes % (auto) 9.9 % (10.0-50.0); Mean Corpuscular Hemoglobin 30.2 pg (28.0-32.0); Mean Corpuscular Hgb Conc. 31.3 g/dL (32.0-36.0); Mean Corpuscular Volume 96.7 fL (80.0-100.0); Monocytes # (auto) 0.6 10 ^3/uL (0-1.3); Monocytes % (auto) 8.9 % (0.0-12.0); Neutrophils # (auto) 5.2 10 ^3/uL (1.6-8.6); Neutrophils % (auto) 78.7 % (37.0-80.0); Nucleated Red Blood Cells % 0.2 %; Platelet Count (auto) 148 10^3/uL (140-450); Red Blood Cells 3.93 10^6/uL (4.5-5.90); Red Cell Distribution Width 18.7 % (11.8-14.3); White Blood Cell 6.6 10^3/uL (4.4-10.8)
--- NOTE | 2024-08-01 05:41 | ED.PDOC ---
History of Present Illness HPI Comments A 69 year old male brought in by EMS presents to the ED with a chief complaint of elevated Troponin. Patient was at [facility], first trop was 0.59 and elevated to 2.61. Upon ED arrival, all vital signs are stable, patient states he has not current complaints. He has a past medical history of COPD, HTN, HLD, CHF, RI, DM. Denies chest pain, shortness of breath, dizziness, headache, blurry vision, nausea, vomiting, diarrhea. No other symptoms or modifying factors present at this time. Chief Complaint: Abnormal LAB's Time Seen by MD: 05:30 Primary Care Provider: AMADA Harrell Notes: Medications, Allergies Allergies: Coded Allergies: Bee Venom (Verified Allergy, Unknown, 07/10/19) Home Meds Active Scripts Metoprolol Tartrate (Metoprolol Tartrate) 25 Mg Tab, 0.5 TAB PO BID for 30 Days, #30 TAB 1 Refill Prov:CRISTAL CLOUD [facility] 03/21/24 Empagliflozin (Jardiance) 10 Mg Tab, 10 MG PO DAILY for 30 Days, #30 TAB Prov:CRISTAL CLOUD [facility] 03/20/24 Pantoprazole Sodium Sesquihydr (Pantoprazole Sodium) 40 Mg Tab, 40 MG PO DAILY@0600 for 30 Days, #30 TAB Prov:CRISTAL CLOUD [facility] 03/20/24 Atorvastatin Calcium (ATORVASTATIN CALCIUM) 20 Mg Tab, 40 MG PO HS for 30 Days, #60 TAB Prov:CRISTAL CLOUD [facility] 03/20/24 Valsartan (Valsartan) 80 Mg Tab, 80 MG PO DAILY for 30 Days, #30 TAB Prov:CRISTAL CLOUD [facility] 03/20/24 Spironolactone (Aldactone) 25 Mg Tab, 25 MG PO DAILY for 30 Days, #30 TAB Prov:CRISTAL CLOUD RESIDENT 03/20/24 Reported Medications Apixaban Base (ELIQUIS) 5 Mg Tab, 1 TAB PO BID for 30 Days, #60 08/01/24 Mbkuzyreknd-Eskvrnddzqhe-Xypxe (Trelegy Ellipta 100-62.5-25 Mcg/INH) 1 Aer Aer, 1 PUFF INH DAILY for 30 Days, #60 03/20/24 Sertraline Hcl (Sertraline Hcl) 50 Mg Tab, 25 MG PO DAILY 03/20/24 Furosemide (Furosemide) 20 Mg Tab, 1 TAB PO DAILY 03/20/24 Levothyroxine Sodium (Levothyroxine Sodium) 25 Mcg Tab, 1 TAB PO DAILY 03/20/24 Metformin Hydrochloride (METFORMIN HCL ER) 1,000 Mg Tab, 1 TAB PO BID for 90 Days, #180 09/29/22 Aspirin (Aspir-81) 81 Mg Tab, 81 MG PO DAILY, TAB 09/29/22 Information Source: Patient Mode of Arrival: EMS Severity: Moderate Timing: Days Duration: Since onset Prehospital treatment: None Vital Signs Vital Signs Date Time Temp Pulse Resp B/P (MAP) Pulse Ox O2 Delivery O2 Flow Rate FiO2 08/01/24 04:30 86 20 103/60 (74) 98 08/01/24 04:14 Room Air* 0 21 08/01/24 03:55 99.1 Physical Exam General: Awake, alert and oriented. No acute distress. Skin: Skin in warm, dry and intact without rashes or lesions. HEENT: The head is normocephalic and atraumatic. Conjunctivae are clear without exudates or hemorrhage. Sclera is non-icteric. Neck: Normal range of motion. No JVD. Cardiac: Regular rate Respiratory: No signs of respiratory distress. No Stridor. Extremities: Upper and lower extremities are atraumatic in appearance without tenderness or deformity. Neurological: The patient is awake, alert and oriented to person, place, and time with normal speech. Speech is clear. There is no facial asymmetry. Psychiatric: Appropriate mood and affect. Good judgement and insight. No visual or auditory hallucinations. No suicidal or homicidal ideation. Review of Systems: As stated in HPI Past Medical History PAST MEDICAL HISTORY: CHF, COPD, DM, High Lipids, HTN, RI, Thyroid Surgical History: Hernia Repair Family History Family History: Reviewed,noncontributory to illness, Family hx of Cancer, Family hx of heart ashlyn Social History Smoker: Quit Greater Than 1 Year, Cigarettes Alcohol: Occasionally Drugs: Denies Drug Use Lives In: Home Was a procedure done? Was a procedure done?: No Differential Dx Considerations may include: Differential diagnoses considered include acute ischemic coronary syndrome, aortic dissection, cardiac tamponade, mediastinitis, pulmonary embolus, pneumothorax, tension pneumothorax, esophageal rupture, coronary artery vasospasm, myocarditis, pericarditis, pneumonia, pulmonary edema, esophageal tear, pancreatitis, aortic stenosis, dilated cardiomyopathy, hypertrophic cardiomyopathy, mitral valve prolapse, malignancy, pleuritis, pneumomediastinum, primary pulmonary hypertension, cholecystitis, esophageal spasm, esophagus, gastritis, GERD, peptic ulcer disease, costochondritis, fibromyalgia, rib fracture, herpes zoster, radicular syndromes, thoracic outlet syndrome, somatization. X-Ray, Labs, Meds, VS Vital Signs Date Time Temp Pulse Resp B/P (MAP) Pulse Ox O2 Delivery O2 Flow Rate FiO2 08/01/24 04:30 86 20 103/60 (74) 98 08/01/24 04:15 88 20 104/60 (75) 88 08/01/24 04:14 88 22 67 Room Air* 0 21 08/01/24 03:55 99.1 99 16 120/68 (85) 97 Lab Test 08/01/24 04:20 Range/Units White Blood Count 6.6 4.4-10.8 10^3/uL Red Blood Count 3.93 L 4.5-5.90 10^6/uL Hemoglobin 11.9 L 13.5-17.5 g/dL Hematocrit 37.9 L 41.0-53.0 % Mean Corpuscular Volume 96.7 80.0-100.0 fL Mean Corpuscular Hemoglobin 30.2 28.0-32.0 pg Mean Corpuscular Hemoglobin Concent 31.3 L 32.0-36.0 g/dL Red Cell Distribution Width 18.7 H 11.8-14.3 % Platelet Count 148 140-450 10^3/uL Mean Platelet Volume 9.6 6.9-10.8 fL Neutrophils (%) (Auto) 78.7 37.0-80.0 % Lymphocytes (%) (Auto) 9.9 L 10.0-50.0 % Monocytes (%) (Auto) 8.9 0.0-12.0 % Eosinophils (%) (Auto) 1.1 0.0-7.0 % Basophils (%) (Auto) 1.4 0.0-2.0 % Neutrophils # (Auto) 5.2 1.6-8.6 10 ^3/uL Lymphocytes # (Auto) 0.7 0.4-5.4 10 ^3/uL Monocytes # (Auto) 0.6 0-1.3 10 ^3/uL Eosinophils # (Auto) 0.1 0-0.8 10 ^3/uL Basophils # (Auto) 0.1 0-0.2 10 ^3/uL Nucleated Red Blood Cells 0.2 % Prothrombin Time 14.0 H 9.3-11.8 sec Prothrombin Time INR 1.35 H 0.9-1.15 Activated Partial Thromboplast Time 38.9 H 24.5-34.5 SEC Sodium Level 134 L 136-145 mmol/L Potassium Level 3.9 3.5-5.1 mmol/L Chloride Level 101 98-107 mmol/L Carbon Dioxide Level 23 20-31 mmol/L Anion Gap 10 5-15 Blood Urea Nitrogen 12 9-23 mg/dL Creatinine 0.92 0.700-1.30 mg/dL Glomerular Filtration Rate Calc 91 >90 mL/min BUN/Creatinine Ratio 13.0 10.0-20.0 Serum Glucose 139 H 74-106 mg/dL Calcium Level 9.0 8.7-10.4 mg/dL Magnesium Level 2.0 1.6-2.6 mg/dL Total Bilirubin 1.0 0.2-1.0 mg/dL Aspartate Amino Transferase (AST) 148 H 13-40 U/L Alanine Aminotransferase (ALT) 37 7-40 U/L Alkaline Phosphatase 119 H 46-116 U/L Troponin I High Sensitivity 1905 *H </=54 ng/L B-Type Natriuretic Peptide 111.01 0-100 pg/mL Total Protein 6.7 5.7-8.2 g/dL Albumin 3.8 3.2-4.8 g/dL Thyroid Stimulating Hormone (TSH) 0.72 0.55-4.78 uIU/mL Free Thyroxine (T4) Calculated 1.21 0.89-1.76 ng/dL Free Triiodothyronine (T3) pg/mL 2.86 2.3-4.2 pg/mL Plasma/Serum Blood Alcohol < 3.0 <10 mg/dL Time of 1ST Reevaluation: 06:00 Reevaluation 1ST: Unchanged Patient Education/Counseling: Diagnosis, Treatment, Prognosis Family Education/Counseling: No Family Present Departure 1 Departure Time of Disposition: 04:12 Impression: Primary Impression: NSTEMI (non-ST elevated myocardial infarction) Disposition: ADMITTED INPATIENT Condition: Stable Comments 69-year-old male in transfer from outside facility for NSTEMI. Patient admitted for further treatment, evaluation and monitoring. Critical Care Note Critical Care Time?: No Stability Stability form required: No I personally scribed for TAI DANIELSON MD ([email or web address]) on 08/01/24 at 05:41. Electronically submitted by Kalie Kennedy ([email or web address]). TAI DANIELSON MD Aug 01, 2024 05:41
[2024-08-01] MEDS ORDERED: cefTRIAXone 2GM/50ML D5W 50 ML IV ONE (05:45)
[2024-08-01 05:48] LABS: INR 1.35 (0.9-1.15); Partial Thromboplastin Time 38.9 SEC (24.5-34.5)
[2024-08-01 05:55] LABS: Alanine Aminotransferase 37 U/L (7-40); Albumin 3.8 g/dL (3.2-4.8); Anion Gap 10 (5-15); Blood Urea Nitrogen 12 mg/dL (9-23); Carbon Dioxide 23 mmol/L (20-31); Chloride 101 mmol/L (98-107); Potassium 3.9 mmol/L (3.5-5.1)
[2024-08-01 05:56] LABS: Total Protein 6.7 g/dL (5.7-8.2)
--- NOTE | 2024-08-01 05:57 | DVH ---
CHEST RADIOGRAPH Indication: Heart failure, pneumonia Technique: Single frontal view of the chest was obtained Comparison: XY CHEST XRAY 1 VIEW on DOS: 03/21/24 FINDINGS: Lines and Tubes: None Lungs: Bilateral interstitial and alveolar opacities.. Pleura: No effusion. No pneumothorax. Cardiomediastinal contours: Unremarkable Bones: No acute osseous abnormality. IMPRESSION: 1. Bilateral interstitial and alveolar opacities.
[2024-08-01 05:59] LABS: Free T3 2.86 pg/mL (2.3-4.2); Free T4 (Free Thyroxine) 1.21 ng/dL (0.89-1.76)
[2024-08-01] MEDS: ALBUTEROL SULF 2.5 MG/0.5ML(0.5%) NEB SOLN NEB ONE (06:08)
[2024-08-01] MEDS: IPRATROPIUM BROM 0.5 MG/2.5ML INH SOL NEB ONE (06:08)
[2024-08-01 06:12] LABS: Alkaline Phosphatase 119 U/L (46-116); Aspartate Aminotransferase 148 U/L (13-40); Glucose 139 mg/dL (74-106); Sodium 134 mmol/L (136-145)
[2024-08-01] MEDS: HEPARIN SODIUM (PORCINE) 5000 UNITS/ML 1ML VIAL IV ONE ×2 (06:46→07:05)
[2024-08-01] MEDS: SODIUM CHLOR 0.9% PF (SALINE LOCK) 10ML VIAL/SYR IV SCH (06:47)
[2024-08-01] MEDS: FAMOTIDINE (10MG/ML) 2ML VL IV ONE (07:06)
[2024-08-01] MEDS: cefTRIAXone 1GM/50ML D5W 50 ML IV ONE (07:06)
[2024-08-01] MEDS: ACCU-CHEK COMFORT CURVE STRIP VI SCH (07:07)
[2024-08-01 07:10] LABS: Lactic Acid w/Reflex 2.1 mmol/L (0.4-2.0)
[2024-08-01] MEDS: InsuLIN REG 1unit/0.01ml Soln (100units/ml) SC SCH (07:10)
[2024-08-01] MEDS: HEPARIN DRIP/D5W 100UNITS/ML 250 ML IV SCH (07:42)
[2024-08-01] MEDS: AZITHROMYCIN 500MG/ 250ML 250 ML IV ONE (07:42)
[2024-08-01] MEDS: ACETAMINOPHEN 325 MG TAB PO PRN (09:27)
[2024-08-01] MEDS ORDERED: SPIRONOLACTONE 25 MG TAB PO SCH (10:00)
[2024-08-01] MEDS ORDERED: LEVOTHYROXINE SODIUM 25 MCG TAB PO SCH (10:00)
[2024-08-01] MEDS: ASPirin-EC 81 mg tab PO SCH (10:29)
[2024-08-01] MEDS: FAMOTIDINE (10MG/ML) 2ML VL IV SCH (10:30)
--- NOTE | 2024-08-01 10:46 | DVHINCON2 ---
Date Seen: Aug 01, 2024 Referring Physician MD [place] resident Reason for Consultation Heart failure History of Present Illness This is a 69-year-old male patient who presents to the emergency room with chief complaint of shortness of breath and cough for one week. The patient reports that approximately one week ago he began experiencing a cough which has progressively worsened. Also reports new onset of green phlegm. He does report that his roommate currently has COVID. Cardiology is now being consulted for elevated troponin level. The patient denies any cardiac symptoms such as chest pain palpitations. Initial twelve lead electrocardiogram reveals normal sinus rhythm with PACs and no significant ST segment changes. Initial troponin level of 1905ng/L with down trend thereafter. Significant past medical history includes coronary artery disease status post PTCA x1 LIZETT (on ASA), myocardial infarction with cardiac arrest in 2016, congestive heart failure, hypertension, hyperlipidemia, history of pulmonary embolism, COPD, type 2 diabetes mellitus, previous tobacco use, and obesity. Past Medical History Past medical history reviewed. No other significant than mentioned above. Past Surgical History Hernia repair Family History: Diabetes mellitus G8 MOTHER FH: heart disease G8 FATHER FH: kidney failure 19 CHILD FH: ovarian cancer G8 MOTHER FHx: pulmonary embolism 19 CHILD Family History Family history reviewed. Social History Patient has a 50 pack-year history, quit smoking in 2016 Patient denies any illicit drug use Patient denies any recent alcohol use, reports a previous history of alcoholism Allergies: Coded Allergies: Bee Venom (Verified Allergy, Unknown, 07/10/19) Home Meds Active Scripts Metoprolol Tartrate (Metoprolol Tartrate) 25 Mg Tab, 0.5 TAB PO BID for 30 Days, #30 TAB 1 Refill Prov:CRISTAL CLOUD RESIDENT 03/21/24 Empagliflozin (Jardiance) 10 Mg Tab, 10 MG PO DAILY for 30 Days, #30 TAB Prov:CRISTAL CLOUD 03/20/24 Pantoprazole Sodium Sesquihydr (Pantoprazole Sodium) 40 Mg Tab, 40 MG PO DAILY@0600 for 30 Days, #30 TAB Prov:CRISTAL CLOUD RESIDENT 03/20/24 Atorvastatin Calcium (ATORVASTATIN CALCIUM) 20 Mg Tab, 40 MG PO HS for 30 Days, #60 TAB Prov:CRISTAL CLOUD RESIDENT 03/20/24 Valsartan (Valsartan) 80 Mg Tab, 80 MG PO DAILY for 30 Days, #30 TAB Prov:CRISTAL CLOUD RESIDENT 03/20/24 Spironolactone (Aldactone) 25 Mg Tab, 25 MG PO DAILY for 30 Days, #30 TAB Prov:CRISTAL CLOUD RESIDENT 03/20/24 Reported Medications Apixaban Base (ELIQUIS) 5 Mg Tab, 1 TAB PO BID for 30 Days, #60 08/01/24 Cablnoxypdu-Kfxlhotpymkd-Mqyfp (Trelegy Ellipta 100-62.5-25 Mcg/INH) 1 Aer Aer, 1 PUFF INH DAILY for 30 Days, #60 03/20/24 Sertraline Hcl (Sertraline Hcl) 50 Mg Tab, 25 MG PO DAILY 03/20/24 Furosemide (Furosemide) 20 Mg Tab, 1 TAB PO DAILY 03/20/24 Levothyroxine Sodium (Levothyroxine Sodium) 25 Mcg Tab, 1 TAB PO DAILY 03/20/24 Metformin Hydrochloride (METFORMIN HCL ER) 1,000 Mg Tab, 1 TAB PO BID for 90 Days, #180 09/29/22 Aspirin (Aspir-81) 81 Mg Tab, 81 MG PO DAILY, TAB 09/29/22 Home Meds Home medications reviewed. Current Medications Current Medications Medications (Trade) Dose Ordered Sig/Frieda Route PRN Reason Start Time Stop Time Status Last Admin Sodium Chloride (Saline Lock Ns) 10 ml Q8HR IV 08/01/24 06:00 08/01/24 06:47 Ondansetron HCl (Zofran) 4 mg Q4HP PRN IV NAUSEA / VOMITING 08/01/24 04:45 Docusate Sodium (Colace Capsule) 100 mg BIDPRN PRN PO FOR CONSTIPATION 08/01/24 04:45 Acetaminophen (Tylenol Tablet) 650 mg Q6HP PRN PO PAIN SCALE 1-3 OR TEMP>100.4 08/01/24 04:45 08/01/24 09:27 Morphine Sulfate 2 mg Q4HPRN PRN IV SEVERE PAIN (7-10 PAIN SCALE) 08/01/24 04:45 Nitroglycerin (Ntrostat Sublingual) 0.4 mg Q5MINP PRN SL FOR CHEST PAIN 08/01/24 04:45 Morphine Sulfate 2 mg Q30M PRN IV FOR CHEST PAIN 08/01/24 04:45 Heparin Sodium/ Dextrose 250 ml @ 10 mls/hr Q24H IV 08/01/24 06:15 08/01/24 07:42 Aspirin (Ecotrin Enteric Coated Tablet) 81 mg DAILY PO 08/01/24 10:00 08/01/24 10:29 Atorvastatin Calcium (Lipitor) 40 mg HS PO 08/01/24 22:00 Levothyroxine Sodium (Synthroid Tablet) 25 mcg DAILY PO 08/01/24 10:00 08/01/24 05:17 DC Spironolactone (Aldactone) 25 mg DAILY PO 08/01/24 10:00 08/01/24 05:17 DC Furosemide (Lasix Injection) 20 mg BIDD IV 08/01/24 18:00 Diagnostic Test (Pha) (Accu-Chek Comfort Curve T) 1 strip ACHS 08/01/24 07:00 08/01/24 07:07 Insulin Human Regular (InsuLIN R) ACHS SC 08/01/24 07:00 08/01/24 07:10 Dextrose 50 ml UD PRN IV Blood Sugar LESS THAN 60 08/01/24 05:30 Azithromycin 250 ml @ 125 mls/hr DAILY IV 08/02/24 10:00 Albuterol (Ventolin Medneb) 2.5 mg Q6HWA NEB 08/01/24 12:00 Ipratropium [place] (Atrovent Medneb) 0.5 mg Q2HPRN PRN NEB SHORTNESS OF BREATH 08/01/24 05:45 Famotidine (Pepcid Injection) 20 mg Q12HR IV 08/01/24 10:00 08/01/24 10:30 Review of Systems Constitutional: No symptom reported Ears, Nose, & Throat: No symptom reported Eyes: No symptom reported Neurological: No symptoms reported Pulmonary/Respiratory: Cough, shortness of breath Cardiovascular: No symptom reported Gastrointestinal: No symptom reported Genitourinary: No symptom reported Musculoskeletal: No symptom reported Skin: No symptom reported Psychiatric: No symptom reported Endocrine: No symptom reported Hematologic/Lymphatic: No symptom reported Vital Signs Vital Signs Date Time Temp Pulse Resp B/P (MAP) Pulse Ox O2 Delivery O2 Flow Rate FiO2 08/01/24 09:00 95 15 90/49 (63) 92 08/01/24 08:00 99.1 4.0 99.1 08/01/24 07:41 Oxymizer N/A Physical Exam General Appearance: Cooperative. Obese Pulmonary/Respiratory: Diminished bilateral lower lobes Cardiovascular/Chest: Regular rate and rhythm. Peripheral Pulses: 2+ Radial (R). 2+ Radial (L). 2+ Pedal (R). 2+ Pedal (L) Abdominal Exam: Normal bowel sounds. Ankle Exam: Negative ankle edema Lower extremities: Negative lower extremity edema Neuro/Mental Status: A/OX4, coherent. Thoughts/Psych: Normal thought pattern. Appropriate mood and affect. Good judgment and insight. Appearance: No acute distress. Skin Exam: Normal inspection. Normal color. Warm and dry. Labs/Diagnostic Data Labs Test 08/01/24 09:16 08/01/24 08:16 08/01/24 07:10 08/01/24 05:55 Range/Units Lactic Acid Level 2.1 *H 0.4-2.0 mmol/L POC Glucose 153 H 70-106 mg/dl Troponin I High Sensitivity 1617 *H </=54 ng/L Test 08/01/24 04:20 Range/Units White Blood Count 6.6 4.4-10.8 10^3/uL Red Blood Count 3.93 L 4.5-5.90 10^6/uL Hemoglobin 11.9 L 13.5-17.5 g/dL Hematocrit 37.9 L 41.0-53.0 % Mean Corpuscular Volume 96.7 80.0-100.0 fL Mean Corpuscular Hemoglobin 30.2 28.0-32.0 pg Mean Corpuscular Hemoglobin Concent 31.3 L 32.0-36.0 g/dL Red Cell Distribution Width 18.7 H 11.8-14.3 % Platelet Count 148 140-450 10^3/uL Mean Platelet Volume 9.6 6.9-10.8 fL Neutrophils (%) (Auto) 78.7 37.0-80.0 % Lymphocytes (%) (Auto) 9.9 L 10.0-50.0 % Monocytes (%) (Auto) 8.9 0.0-12.0 % Eosinophils (%) (Auto) 1.1 0.0-7.0 % Basophils (%) (Auto) 1.4 0.0-2.0 % Neutrophils # (Auto) 5.2 1.6-8.6 10 ^3/uL Lymphocytes # (Auto) 0.7 0.4-5.4 10 ^3/uL Monocytes # (Auto) 0.6 0-1.3 10 ^3/uL Eosinophils # (Auto) 0.1 0-0.8 10 ^3/uL Basophils # (Auto) 0.1 0-0.2 10 ^3/uL Nucleated Red Blood Cells 0.2 % Prothrombin Time 14.0 H 9.3-11.8 sec Prothrombin Time INR 1.35 H 0.9-1.15 Activated Partial Thromboplast Time 38.9 H 24.5-34.5 SEC Sodium Level 134 L 136-145 mmol/L Potassium Level 3.9 3.5-5.1 mmol/L Chloride Level 101 98-107 mmol/L Carbon Dioxide Level 23 20-31 mmol/L Anion Gap 10 5-15 Blood Urea Nitrogen 12 9-23 mg/dL Creatinine 0.92 0.700-1.30 mg/dL Glomerular Filtration Rate Calc 91 >90 mL/min BUN/Creatinine Ratio 13.0 10.0-20.0 Serum Glucose 139 H 74-106 mg/dL Calcium Level 9.0 8.7-10.4 mg/dL Magnesium Level 2.0 1.6-2.6 mg/dL Total Bilirubin 1.0 0.2-1.0 mg/dL Aspartate Amino Transferase (AST) 148 H 13-40 U/L Alanine Aminotransferase (ALT) 37 7-40 U/L Alkaline Phosphatase 119 H 46-116 U/L B-Type Natriuretic Peptide 111.01 0-100 pg/mL Total Protein 6.7 5.7-8.2 g/dL Albumin 3.8 3.2-4.8 g/dL Thyroid Stimulating Hormone (TSH) 0.72 0.55-4.78 uIU/mL Free Thyroxine (T4) Calculated 1.21 0.89-1.76 ng/dL Free Triiodothyronine (T3) pg/mL 2.86 2.3-4.2 pg/mL Plasma/Serum Blood Alcohol < 3.0 <10 mg/dL Assessment Sepsis Possible pneumonia NSTEMI type II secondary to above Acute on chronic HFimEF, NYHA class III (LVEF from 30% now 50%) Coronary artery disease s/p PTCA X 1 LIZETT (on Aspirin) History of myocardial infarction and cardiac arrest Hypertension Hyperlipidemia Type II diabetes mellitus COPD Hx of pulmonary embolism History of tobacco use Obesity Plan/Recommendation We will continue with the following plan/recommendations (Dr. Pimentel): * Echocardiogram reveals EF 50 % * Previous echocardiogram from 03/19/2024 reveals EF of 30% * Continue GDMT for CHF * Re-initiate home dose Losartan with optimal BP * Discontinue heparin drip * Continue single antiplatelet therapy and lipid-lowering agent * Antibiotics per primary care team Patient seen and examined at bedside with . Elevated troponin level likely secondary to underlying pneumonia/sepsis. Twelve lead electrocardiogram shows no significant ST segment changes. Patient denies any chest pain or cardiac symptoms. We will continue with conservative medical management at this time. Thank you for allowing us to care for this patient. Please call with any questions or concerns. Critical care time spent: 44 minutes This medical document was created using an electronic medical record system with voice recognition software and computerized dictation system. Although this document has been carefully reviewed, there might still be some phonetic and typographical errors. Occasional wrong-word or ``sound-alike substitutions may have occurred due to the inherent limitations of voice recognition software. These areas are purely typographical due to imperfections of the software programs and do not reflect any compromise in the patient's medical care. Please read the chart carefully and recognize, using context, where these substitutions have occurred. Plan discussed with: Patient NYHA Physical activity limitations: Class3(Marked) ordinary (activity causes symtoms) Date of Service: Aug 01, 2024 Billing Provider: BECKI PIMENTEL MD Cardiology Common Codes: 51082-ZWBXQAQ INP/OBS CARE (High) Cardiology Consultation Codes: 12562-FIFLUKQMR CONSULT <45MIN BRI ARGUELLES Aug 01, 2024 10:45
[2024-08-01 11:10] LABS: COVID19 ANTIGEN SOFIA FIA NEGATIVE (NEGATIVE); Rapid Influenza A Negative (Negative); Rapid Influenza B Negative (Negative)
[2024-08-01] MEDS: ALBUTEROL SULF 2.5 MG/0.5ML(0.5%) NEB SOLN NEB SCH (12:05)
[2024-08-01] MEDS: IPRATROPIUM BROM 0.5 MG/2.5ML INH SOL NEB PRN (12:06)
--- NOTE | 2024-08-01 13:00 | DVHSR ---
APPROVED REPORT EXAM: Two-dimensional and M-mode echocardiogram with Doppler and color Doppler. Blood Pressure: 101/60 mmHg INDICATION COPD History of CHF RISK FACTORS Height: 68, Weight: 175 DIMENSIONS LVDd (3.8-5.7cm)LA (2D)4.8 (1.9-4.0cm)Aortic Root3.5 (2.0-3.7cm) LVDs (2.5-4.0cm)LA (MM) (1.9-4.0cm)Aortic Cusp Exc1.9 (1.5-2.0cm) EF (%) 52.0 (55-70%)Rt. Atrium4.1 (1.9-4.0cm)Asc. Aorta cm Mitral Valve MitralMitral Stenosis E wave0.72m/sMV Mean GR.mmHg A wave1.02m/sMV Peak GR.mmHg E/A ratio0.72D MVAcm2 DECEL [id number] 1/2 [id number] IVRTmsDop MVA3.45cm2 Aortic Valve Aortic ValveAortic Stenosis V11.29m/Burt Mean GR.9mmHg V22.08m/Burt Peak GR.17mmHg LVOT Diameter2.2 (1.8-2.4cm)Doppler AVA2.36cm2 Pulmonic Valve V21.06m/s Conclusion Normal left ventricular size and dimension. Normal left ventricular systolic function estimated ejec tion fraction 50%. There is a grade 1 diastolic dysfunction. Normal right ventricular size and dimension. Normal right ventricular systolic function. Mildly dilated right and left atria. Normal aortic valve structure and function. Normal mitral valve structure and function. Normal tricuspid valve structure and function. The pulmonary valve is grossly normal. No pericardial effusion.
[2024-08-01 13:51] LABS: INR 1.35 (0.9-1.15)
[2024-08-01 13:59] LABS: Partial Thromboplastin Time 75.8 SEC (24.5-34.5)
[2024-08-01] MEDS ORDERED: cefTRIAXone 1GM/50ML D5W 50 ML IV ONE (17:30)
[2024-08-01] MEDS: FUROSEMIDE 20 MG/2 ML VIAL IV SCH (17:55)
[2024-08-01 20:40] LABS: Urine Bacteria FEW /hpf (None Seen); Urine Blood Negative /uL (Negative); Urine Clarity Clear (Clear); Urine Color Yellow (Yellow); Urine Hyaline Cast FEW /lpf (0 - 2); Urine Protein, UAD TRACE (Negative); Urine Urobilinogen Normal (Negative); Urine WBC 1 /hpf (0 - 3)
[2024-08-01 20:51] LABS: Benzodiazephine Screen, Urine Neg (NEGATIVE); Opiate Scree,Urine Neg (NEGATIVE)
[2024-08-01 21:05] LABS: Amphetamine Screen, Urine Neg (NEGATIVE); Barbiturate Scree,Urine Neg (NEGATIVE); Cannabinoid Screen, Urine Neg (NEGATIVE); Cocaine Screen, Urine Neg (NEGATIVE); Phencyclidine Screen, Urine Neg (NEGATIVE)
[2024-08-01] MEDS: METOPROLOL TARTRATE 25 MG TAB PO SCH (22:07)
[2024-08-01] MEDS: ATORVASTATIN 20 MG TAB PO SCH (22:07)
[2024-08-02] MEDS ORDERED: SODIUM CHLORIDE 0.9% 500 ML IV ONE (06:15)
[2024-08-02] MEDS: MIDODRINE HCL 10 MG TAB PO ONE (06:27)
[2024-08-02] MEDS: SODIUM CHLORIDE 0.9% 250 ML IV SCH (06:39)
--- NOTE | 2024-08-02 06:59 | ECG ---
[facility] Test Date: 2024-08-01 Test Time: 08:48:06 Pat Name: SHAHEEN GONZALEZ Department: er Room: [address] [place] [address] Gender: M Lard Bleacher: jasmine : 1955 Requested By: TAI DANIELSON Order Number: [id number] Reading MD: Measurements Intervals [place] Rate: 89 P: 67 CA: 168 QRS: 61 QRSD: 104 T: 29 QT: 391 QTc: 476 Interpretive Statements Sinus rhythm Atrial premature complexes Sinus pause Consider left atrial enlargement Borderline low voltage, extremity leads Borderline prolonged QT interval Please click the below link to view image of tracing.
[2024-08-02 07:15] VITALS: PULSE 64; RESP 18; O2SAT 94
[2024-08-02 07:21] VITALS: PULSE 60; RESP 18; O2SAT 94
[2024-08-02 07:45] LABS: Basophils # (auto) 0 10 ^3/uL (0-0.2); Basophils % (auto) 0.6 % (0.0-2.0); Eosinophils # (auto) 0.1 10 ^3/uL (0-0.8); Eosinophils % (auto) 1.8 % (0.0-7.0); Hematocrit 34.1 % (41.0-53.0); Hemoglobin 10.8 g/dL (13.5-17.5); Lymphocytes # (auto) 0.8 10 ^3/uL (0.4-5.4); Lymphocytes % (auto) 15.5 % (10.0-50.0); Mean Corpuscular Hemoglobin 30.9 pg (28.0-32.0); Mean Corpuscular Hgb Conc. 31.6 g/dL (32.0-36.0); Mean Corpuscular Volume 97.8 fL (80.0-100.0); Monocytes # (auto) 0.5 10 ^3/uL (0-1.3); Monocytes % (auto) 9.9 % (0.0-12.0); Neutrophils # (auto) 3.6 10 ^3/uL (1.6-8.6); Neutrophils % (auto) 72.2 % (37.0-80.0); Nucleated Red Blood Cells % 0.1 %; Platelet Count (auto) 135 10^3/uL (140-450); Red Blood Cells 3.48 10^6/uL (4.5-5.90); Red Cell Distribution Width 18.8 % (11.8-14.3)
[2024-08-02 07:54] LABS: Alanine Aminotransferase 34 U/L (7-40); Albumin 3.3 g/dL (3.2-4.8); Alkaline Phosphatase 106 U/L (46-116); Anion Gap 9 (5-15); BUN/Creatinine Ratio 13.1 (10.0-20.0); Blood Urea Nitrogen 11 mg/dL (9-23); Carbon Dioxide 23 mmol/L (20-31); Chloride 101 mmol/L (98-107); LDL Cholesterol 47 mg/dL (< 100); Triglycerides 87 mg/dL (< 150)
[2024-08-02 07:55] LABS: Bilirubin, Total 0.8 mg/dL (0.2-1.0); Cholesterol 76 mg/dL (< 200)
[2024-08-02 07:57] LABS: Aspartate Aminotransferase 124 U/L (13-40); Calcium 8.6 mg/dL (8.7-10.4); Glucose 123 mg/dL (74-106); HDL Cholesterol 14 mg/dL (40-59); Sodium 133 mmol/L (136-145)
[2024-08-02 08:00] VITALS: BP 117/39; PULSE 78; RESP 17; TEMP 98.4; O2SAT 88
--- NOTE | 2024-08-02 08:38 | DVHPN2 ---
Consult Progress Note Date Seen: Aug 02, 2024 Subjective Patient reports: Feels better Review of Systems: CVS:Normal, RESPIRATORY:Normal, NEURO:Normal Objective vital signs Vital Sign Date Time Temp Pulse Resp B/P (MAP) Pulse Ox O2 Delivery O2 Flow Rate FiO2 08/02/24 07:21 60 18 94 08/02/24 07:15 Oxymizer 6 N/A 08/02/24 06:01 90/56 08/02/24 04:10 99.9 Total Intake and Output 08/01/24 08/01/24 08/02/24 15:00 23:00 07:00 Intake Total 300 ml Balance 300 ml medications Current Medications Medications Dose Ordered Sig/Frieda Route Start Time Stop Time Status Last Admin Dose Admin Sodium Chloride 10 ml Q8HR IV 08/01/24 06:00 08/02/24 06:01 10 ML Ondansetron HCl 4 mg Q4HP PRN IV 08/01/24 04:45 Docusate Sodium 100 mg BIDPRN PRN PO 08/01/24 04:45 Acetaminophen 650 mg Q6HP PRN PO 08/01/24 04:45 08/02/24 03:10 650 MG Morphine Sulfate 2 mg Q4HPRN PRN IV 08/01/24 04:45 Nitroglycerin 0.4 mg Q5MINP PRN SL 08/01/24 04:45 Morphine Sulfate 2 mg Q30M PRN IV 08/01/24 04:45 Aspirin 81 mg DAILY PO 08/01/24 10:00 08/01/24 10:29 81 MG Atorvastatin Calcium 40 mg HS PO 08/01/24 22:00 08/01/24 22:07 40 MG Furosemide 20 mg BIDD IV 08/01/24 18:00 08/02/24 06:01 20 MG Diagnostic Test (Pha) 1 strip ACHS 08/01/24 07:00 08/02/24 06:42 1 STRIP Insulin Human Regular ACHS SC 08/01/24 07:00 08/01/24 22:08 2 UNITS Dextrose 50 ml UD PRN IV 08/01/24 05:30 Azithromycin 250 ml @ 125 mls/hr DAILY IV 08/02/24 10:00 Albuterol 2.5 mg Q6HWA NEB 08/01/24 12:00 08/02/24 07:15 2.5 MG Ipratropium [place] 0.5 mg Q2HPRN PRN NEB 08/01/24 05:45 08/01/24 19:56 0.5 MG Famotidine 20 mg Q12HR IV 08/01/24 10:00 08/01/24 22:06 20 MG Spironolactone 25 mg DAILY PO 08/02/24 10:00 Metoprolol Tartrate 12.5 mg BID PO 08/01/24 22:00 08/01/24 22:07 12.5 MG Ceftriaxone Sodium 50 ml @ 100 mls/hr DAILY@09 IV 08/02/24 09:00 Examination: LUNGS:Abnormal (On oxymizer at 7 L/min) laboratory and microbiology Laboratory Tests 08/02/24 07:10 Test 08/02/24 07:10 Range/Units Serum Glucose 123 H 74-106 mg/dL Problem List/Assessment/Plan Problem List/Assessment/Plan Sepsis with possible pneumonia NSTEMI type II secondary to above Acute on chronic HFimEF, NYHA class III (LVEF from 30% now 50%) Coronary artery disease s/p PTCA X 1 LIZETT (on Aspirin) History of myocardial infarction and cardiac arrest Hypertension Hyperlipidemia Type II diabetes mellitus COPD with hx of tobacco use Hx of pulmonary embolism Obesity Plan/Recommendation (Dr. Pimentel) * Echocardiogram reveals EF 50 % * Previous echocardiogram from 03/19/2024 reveals EF of 30% * Continue GDMT for CHF with parameters for MAP >65 mmHg * Continue single-antiplatelet therapy and lipid-lowering agent * Antibiotics per primary care team We will sign off at this time. Please call if in need of further cardiology work-up. Thank you for allowing us to care for this patient. Please call with any questions or concerns. Critical care time spent: 44 minutes This medical document was created using an electronic medical record system with voice recognition software and computerized dictation system. Although this document has been carefully reviewed, there might still be some phonetic and typographical errors. Occasional wrong-word or ``sound-alike substitutions may have occurred due to the inherent limitations of voice recognition software. These areas are purely typographical due to imperfections of the software programs and do not reflect any compromise in the patient's medical care. Please read the chart carefully and recognize, using context, where these substitutions have occurred. Plan discussed with: Patient, Other Date of Service: Aug 02, 2024 Billing Provider: BECKI PIMENTEL MD Cardiology Common Codes: [id number] INP/OBS CARE(Mod) [facility]APATI [facility] Aug 02, 2024 08:38
[2024-08-02] MEDS: cefTRIAXone 1GM/50ML D5W 50 ML IV SCH (09:33)
[2024-08-02] MEDS ORDERED: METOPROLOL TARTRATE 25 MG TAB PO SCH (10:00)
[2024-08-02] MEDS ORDERED: LOSARTAN POTASSIUM 25 MG TAB PO SCH (10:00)
[2024-08-02] MEDS ORDERED: EMPAGLIFLOZIN 10 MG TAB PO SCH ×2 (10:00)
[2024-08-02] MEDS ORDERED: SPIRONOLACTONE 25 MG TAB PO SCH ×2 (10:00)
[2024-08-02] MEDS ORDERED: AZITHROMYCIN 500MG/ 250ML 250 ML IV SCH (10:00)
--- NOTE | 2024-08-02 18:36 | DVHDS2 ---
Discharge Summary Date of Admission Aug 01, 2024 at 04:42 Date of Discharge: Aug 02, 2024 Labs/Diagnostic Data: Laboratory Results Test 08/02/24 07:10 08/02/24 06:41 08/01/24 14:35 08/01/24 12:50 White Blood Count 5.0 10^3/uL (4.4-10.8) Red Blood Count 3.48 10^6/uL (4.5-5.90) Hemoglobin 10.8 g/dL (13.5-17.5) Hematocrit 34.1 % (41.0-53.0) Mean Corpuscular Volume 97.8 fL (80.0-100.0) Mean Corpuscular Hemoglobin 30.9 pg (28.0-32.0) Mean Corpuscular Hemoglobin Concent 31.6 g/dL (32.0-36.0) Red Cell Distribution Width 18.8 % (11.8-14.3) Platelet Count 135 10^3/uL (140-450) Mean Platelet Volume 9.4 fL (6.9-10.8) Neutrophils (%) (Auto) 72.2 % (37.0-80.0) Lymphocytes (%) (Auto) 15.5 % (10.0-50.0) Monocytes (%) (Auto) 9.9 % (0.0-12.0) Eosinophils (%) (Auto) 1.8 % (0.0-7.0) Basophils (%) (Auto) 0.6 % (0.0-2.0) Neutrophils # (Auto) 3.6 10 ^3/uL (1.6-8.6) Lymphocytes # (Auto) 0.8 10 ^3/uL (0.4-5.4) Monocytes # (Auto) 0.5 10 ^3/uL (0-1.3) Eosinophils # (Auto) 0.1 10 ^3/uL (0-0.8) Basophils # (Auto) 0 10 ^3/uL (0-0.2) Nucleated Red Blood Cells 0.1 % Sodium Level 133 mmol/L (136-145) Potassium Level 4.0 mmol/L (3.5-5.1) Chloride Level 101 mmol/L (98-107) Carbon Dioxide Level 23 mmol/L (20-31) Anion Gap 9 (5-15) Blood Urea Nitrogen 11 mg/dL (9-23) Creatinine 0.84 mg/dL (0.700-1.30) Glomerular Filtration Rate Calc 96 mL/min (>90) BUN/Creatinine Ratio 13.1 (10.0-20.0) Serum Glucose 123 mg/dL (74-106) Hemoglobin A1c 7.9 % A1C (<5.7) Calcium Level 8.6 mg/dL (8.7-10.4) Total Bilirubin 0.8 mg/dL (0.2-1.0) Aspartate Amino Transferase (AST) 124 U/L (13-40) Alanine Aminotransferase (ALT) 34 U/L (7-40) Alkaline Phosphatase 106 U/L (46-116) Total Protein 6.0 g/dL (5.7-8.2) Albumin 3.3 g/dL (3.2-4.8) Triglycerides Level 87 mg/dL (< 150) Cholesterol Level 76 mg/dL (< 200) LDL Cholesterol 47 mg/dL (< 100) HDL Cholesterol 14 mg/dL (40-59) POC Glucose 125 mg/dl (70-106) Troponin I High Sensitivity 1007 ng/L (</=54) Prothrombin Time 14.0 sec (9.3-11.8) Prothrombin Time INR 1.35 (0.9-1.15) Activated Partial Thromboplast Time 75.8 SEC (24.5-34.5) Test 08/01/24 09:42 08/01/24 09:16 08/01/24 08:16 08/01/24 04:20 Urine Color Yellow (Yellow) Urine Clarity Clear (Clear) Urine pH 6.0 (5.0-9.0) Urine Specific Prim 1.020 (1.001-1.035) Urine Protein Trace (Negative) Urine Ketones Negative (Negative) Urine Blood Negative /uL (Negative) Urine Nitrite Negative (Negative) Urine Bilirubin Negative (Negative) Urine Urobilinogen Normal mg/dL (Negative) Urine Leukocyte Esterase Negative /uL (Negative) Urine RBC <1 /hpf (0 - 3) Urine WBC 1 /hpf (0 - 3) Urine Squamous Epithelial Cells Few /hpf (<5) Urine Bacteria Few /hpf (None Seen) Urine Hyaline Casts Few /lpf (0 - 2) Urine Glucose Normal mg/dL (Normal) Urine Opiates Screen Neg (NEGATIVE) Urine Fentanyl Screen Neg (NEGATIVE) Urine Barbiturates Screen Neg (NEGATIVE) Urine Phencyclidine Screen Neg (NEGATIVE) Urine Amphetamines Screen Neg (NEGATIVE) Urine Benzodiazepines Screen Neg (NEGATIVE) Urine Cocaine Screen Neg (NEGATIVE) Urine Cannabinoids Screen Neg (NEGATIVE) Influenza Type A Antigen Negative (Negative) Influenza Type B Antigen Negative (Negative) SARS-CoV-2 Antigen (Rapid) Negative (NEGATIVE) Lactic Acid Level 2.1 mmol/L (0.4-2.0) Magnesium Level 2.0 mg/dL (1.6-2.6) B-Type Natriuretic Peptide 111.01 pg/mL (0-100) Thyroid Stimulating Hormone (TSH) 0.72 uIU/mL (0.55-4.78) Free Thyroxine (T4) Calculated 1.21 ng/dL (0.89-1.76) Free Triiodothyronine (T3) pg/mL 2.86 pg/mL (2.3-4.2) Plasma/Serum Blood Alcohol < 3.0 mg/dL (<10) Other Laboratory Tests 08/02/24 07:10 Brief Hx & Hospital Course: This is a 69-year-old male patient who presents to the emergency room with chief complaint of shortness of breath and cough for one week. The patient reports that approximately one week ago he began experiencing a cough which has progressively worsened. Also reports new onset of green phlegm. He does report that his roommate currently has COVID. Cardiology is now being consulted for elevated troponin level. The patient denies any cardiac symptoms such as chest pain palpitations. Initial twelve lead electrocardiogram reveals normal sinus rhythm with PACs and no significant ST segment changes. Initial troponin level of 1905ng/L with down trend thereafter. Significant past medical history includes coronary artery disease status post PTCA x1 LIZETT (on ASA), myocardial infarction with cardiac arrest in 2016, congestive heart failure, hypertension, hyperlipidemia, history of pulmonary embolism, COPD, type 2 diabetes mellitus, previous tobacco use, and obesity. Patient left AMA Condition at Discharge: Unstable Final Diagnosis/Problems List Sepsis with possible pneumonia NSTEMI type II secondary to above Acute on chronic HFimEF, NYHA class III (LVEF from 30% now 50%) Coronary artery disease s/p PTCA X 1 LIZETT (on Aspirin) History of myocardial infarction and cardiac arrest Hypertension Hyperlipidemia Type II diabetes mellitus COPD with hx of tobacco use Hx of pulmonary embolism Obesity Discharge Disposition: AMA Discharge Statement: "Patient was advised to return to the ER or call 911 if any headaches, dizziness, shortness of breath, chest pain, abdominal pain, bleeding, fevers, or worsening of medical condition. Patient was counseled about treatment plan, medications, possible side effects, patientverbalized understanding. All questions were answered to the best of my ability. This discharge took greater then 30 minutes in planning, reviewing documentation, counseling the patient, and discussing with other team members." ASSESSMENT ASSESSMENT Assessment Date of Service: Aug 02, 2024 Billing Provider: DEDRICK BHAT MD Common Visit Codes: 29371-PMR/OBS DISCH DAY >30min DEDRICK BHAT MD Aug 02, 2024 18:36
== END 2024-08-02 07:46 | disposition left against medical advice (07) | DRG 280 ==
LOC: EDBD 03:50 → ER 03:50 → TELE 04:42
PROVIDERS: ADMIT Internal Medicine; ATTEND Internal Medicine
DX: I11.0 Hypertensive heart disease with heart failure (principal); I50.23 Acute on chronic systolic (congestive) heart failure; I21.A1 Myocardial infarction type 2; J96.21 Acute and chronic respiratory failure with hypoxia; J15.69 Pneumonia due to other Gram-negative bacteria; J15.9 Unspecified bacterial pneumonia; J44.1 Chronic obstructive pulmonary disease with (acute) exacerbation; J44.0 Chronic obstructive pulmonary disease with (acute) lower respiratory infection; Z20.822 Contact with and (suspected) exposure to COVID-19; E78.5 Hyperlipidemia, unspecified; E11.9 Type 2 diabetes mellitus without complications; Z53.29 Procedure and treatment not carried out because of patient's decision for other reasons; I25.10 Atherosclerotic heart disease of native coronary artery without angina pectoris; E03.9 Hypothyroidism, unspecified; E66.9 Obesity, unspecified; Z91.030 Bee allergy status; Z87.891 Personal history of nicotine dependence; Z98.61 Coronary angioplasty status; Z86.74 Personal history of sudden cardiac arrest; Z79.82 Long term (current) use of aspirin; I25.2 Old myocardial infarction; Z86.711 Personal history of pulmonary embolism; Z83.3 Family history of diabetes mellitus; Z82.49 Family history of ischemic heart disease and other diseases of the circulatory system; Z80.41 Family history of malignant neoplasm of ovary; Z68.26 Body mass index [BMI] 26.0-26.9, adult; Z79.84 Long term (current) use of oral hypoglycemic drugs; Z79.899 Other long term (current) drug therapy
CPT/HCPCS: 36415; 71045; 80053; 80061; 80307; 80320; 81001; 82962; 83036; 83605; 83735; 83880; 84439; 84443; 84481; 84484; 85025; 85610; 85730; 87426; 87804; 93005; 93306; 94640; G0378; J1815; J3490